=== PATIENT | female | born 1965 | race Caucasian/White ===

== ENCOUNTER 2022-06-24 21:08 | Emergency (ER) | payer OTHER, BC, SELFPAY ==
[2022-06-24 21:17] VITALS: BP 118/96; PULSE 78; RESP 18; TEMP 36.2; O2SAT 98; BMI 33.8
--- NOTE | 2022-06-24 21:55 | ED.GENADULT ---
HPI - General Adult General Time Seen by Provider: 21:50 Date Seen: 06/24/22 Chief complaint: Extremity Pain/Injury, Lower Stated complaint: LEFT KNEE INJURY - SEVERE Time Seen by Provider: 06/24/22 21:39 Source: patient and family Mode of arrival: ambulatory Limitations: no limitations History of Present Illness HPI narrative: 57-year-old female who comes in today with left knee pain or fall. Patient was finishing up with work prepped and fell landing predominantly on the left knee. Also scraped her hands. Denies head injury or head pain. Reports that prior to this she was feeling her usual state of health, no headache, nausea, vomiting, chest pain or palpitations. Says she did not pass out and clearly tripped. She has not taken anything for her pain. She also some pain in the back of the left calf. Related Data Home Medications Medication Instructions Recorded Confirmed duloxetine 60 mg capsule,delayed 120 mg PO DAILY 04/20/22 06/24/22 release gabapentin 600 mg tablet mg PO TID 04/20/22 04/20/22 hydroxyzine pamoate 25 mg capsule mg PO PRN 04/20/22 04/20/22 lamotrigine 100 mg tablet mg PO DAILY 04/20/22 04/20/22 metoprolol tartrate 25 mg tablet mg PO BID 04/20/22 04/20/22 ondansetron 8 mg disintegrating mg translingual PRN 04/20/22 04/20/22 tablet Previous Rx's Medication Instructions Recorded rizatriptan 10 mg tablet 10 mg PO .As Needed PRN migraine 04/20/22 headache #18 tabs Allergies Allergy/AdvReac Type Severity Reaction Status Date / Time lithium Allergy Severe drug Verified 06/24/22 21:22 induced immune thrombocytopenia olanzapine Allergy Severe drug Verified 06/24/22 21:22 induced immune thrombocytopenia phenobarbital Allergy Severe drug Verified 06/24/22 21:22 induced immune thrombocytopenia codeine Allergy Mild Rash Verified 06/24/22 21:22 Review of Systems Status of ROS: Reports: 10 or more systems reviewed and unremarkable except as noted in History and below [facility] Medical History (Updated 06/24/22 @ 23:22 by Enrique Garcia MD) Calculus of kidney (05/03/13) History of colonic polyps Infection due to severe acute respiratory syndrome coronavirus 2 (SARS-CoV-2) (10/2021) Surgical History (Updated 04/19/22 @ 18:55 by Ava Lofton) History of section (05/03/13) History of colonoscopy with polypectomy History of laparoscopic cholecystectomy History of spinal surgery (05/03/13) Family History (Updated 04/13/22 @ 15:27 by Faraz Kelly) Mother Breast cancer, Onset Age: 50 Father Stroke Coronary artery disease High blood pressure Other Hyperlipidemia Social History (Updated 04/13/22 @ 15:28 by Faraz Kelly) Narrative: consumes alcohol occasionally does not use illicit drugs smoker- 1 ppd for many years Smoking Status: Current every day smoker How often do you have a drink containing alcohol: 2-4 times a month AUDIT-C Alcohol total score: 2 Non-prescribed substance use: denies use Little interest or pleasure in doing things: not at all Feeling down, depressed, or hopeless: several days Exam Narrative: Exam Narrative: General: Well-developed and well-nourished, no acute distress Head: Atraumatic and normocephalic Eyes: Pupils are equal reactive, extraocular motions intact, conjunctiva clear ENT: External nose and ears are normal, posterior pharynx without erythema or exudate Neck: No midline cervical tenderness, full spontaneous range of motion the neck, trachea midline, no adenopathy Heart: Regular rate and rhythm no murmurs or thrills Lungs: Clear to auscultation bilaterally without wheezes or crackles Abdomen: Soft, nontender, nondistended with active bowel sounds Musculoskeletal: Swelling and tenderness of the left knee, no joint effusion. The patellar tendon is palpable along its course patient declines to straight leg raise due to pain but does fully straighten knee spontaneously and quadriceps mechanism appears to be intact. Calf and some popliteal tenderness with no swelling. Achilles tendon is intact with no tenderness at the distal insertion Neurologic: Awake, alert, and oriented x3, no gross focal neurologic deficits, cranial nerves intact as tested Psych: Mood and affect are appropriate Skin: No rashes Const: Vital Signs, click to edit/add: Vital Signs - 24 hr 06/24/22 21:17 Temperature 97.1 F L Pulse Rate [Left P ulse Oximeter] 78 Respiratory Rate 18 Blood Pressure [Ri ght Upper Arm] 118/96 H Pulse Oximetry 98 Oxygen Delivery Me thod Room Air Course Course Hospital Course: Patient seen and examined, prior records are reviewed. Patient presents after tripping and falling on her left knee. Tender and swollen over the patella, likely patellar fracture, contusion or bursitis also possible but less likely. No report of knee dislocation per the patient. She also has some tenderness in the calf but no swelling and the Achilles tendon act. X-rays of the knee are ordered. Reevaluation(s) Reevaluation #1: X-rays negative for acute fracture. Patient is little more swelling of the patellar tendon, quadriceps mechanism rechecked and intact. Stable for discharge with0 immobilizer crutches, weight-bearing as tolerated, follow-up with orthopedics. Time: 23:21 Vital Signs Vital signs: Initial Vital Signs Temperature 97.1 F L 06/24/22 21:17 Temperature Source Temporal Artery Scan 06/24/22 21:17 Pulse Rate 78 06/24/22 21:17 Respiratory Rate 18 06/24/22 21:17 Blood Pressure 118/96 H 06/24/22 21:17 Blood Pressure Mean 103 06/24/22 21:17 Blood Pressure Position Supine 06/24/22 21:17 Pulse Oximetry 98 06/24/22 21:17 Oxygen Delivery Method 06/24/22 21:17 Vital Signs Temperature 97.1 F L 06/24/22 21:17 Pulse Rate 78 06/24/22 21:17 Respiratory Rate 18 06/24/22 21:17 Blood Pressure 118/96 H 06/24/22 21:17 Pulse Oximetry 98 06/24/22 21:17 Oxygen Delivery Method 06/24/22 21:17 Temperature 97.1 F L 06/24/22 21:17 Pulse Rate 78 06/24/22 21:17 Respiratory Rate 18 06/24/22 21:17 Blood Pressure 118/96 H 06/24/22 21:17 Pulse Oximetry 98 06/24/22 21:17 Oxygen Delivery Method 06/24/22 21:17 Medical Decision Making Medical Records Medical records reviewed: Yes I reviewed the patient's medical records Lab Data Lab results reviewed: Yes I reviewed the patient's lab results Imaging Data XR left knee: Attestation: I have reviewed the pertinent imaging results. My impression: No acute fracture, no effusion Discharge Plan Discharge Clinical Impression: Strain of left calf muscle, Contusion of left knee, Bursitis, traumatic Patient Disposition: Home, Self-Care Condition: Stable Instructions: Contusion in Adults (ED), Knee Bursitis (ED) Additional Instructions: Tylenol and ibuprofen as needed for pain. Crutches and immobilizer for comfort. Follow-up with orthopedics Activity Level: Weight Bearing as Tolerated Prescriptions: No Action ondansetron 8 mg tablet,disintegrating translingual PRN duloxetine 60 mg capsule,delayed release(DR/EC) 120 mg PO DAILY lamotrigine 100 mg tablet PO DAILY metoprolol tartrate 25 mg tablet PO BID hydroxyzine pamoate 25 mg capsule PO PRN gabapentin 600 mg tablet PO TID rizatriptan 10 mg tablet 10 mg PO .As Needed PRN (Reason: migraine headache) Qty: 18 3RF Rx Instructions: TAKE ONE TAB AT ONSET OF HEADACHE, MAY REPEAT Q2H PRN, MAX 30 MG/24 HRS Follow Up/Referrals: Alexus Concepcion PA-C [Primary Care Provider] - Stand Alone Forms: Tempo [employer] Info Instructions
--- NOTE | 2022-06-24 21:59 | CRLHL7_ITS ---
For Patients: As a result of the Century Cures Act, medical imaging exams and procedure reports are released immediately into your electronic medical record. You may view this report before your referring provider. If you have questions, please contact your health care provider. Indication: Pain after fall Technique: Three views left knee Comparison: None Findings: Bones: Alignment is normal. No fractures or bone lesions. Joint spaces: Mild patellofemoral degenerative changes. Soft tissues: Unremarkable. No effusion. Impression: No acute abnormality. Dictated by Humaira Bishop MD @ 06/24/2022 11:11:48 PM (Electronically Signed)
[2022-06-24] MEDS: OxyCODONE/APAP 5-325 TABLET 1 TAB PO (22:00)
--- NOTE | 2022-06-24 23:16 | ED.NURSE ---
assisted pt to restroom via wheelchair.
== END 2022-06-24 23:59 | disposition home or self-care (01) ==
PROVIDERS: Emergency Provider Family Medicine; PCP Physician Assistant Medical
DX: S86.912A Strain of unspecified muscle(s) and tendon(s) at lower leg level, left leg, initial encounter (principal); S80.02XA Contusion of left knee, initial encounter; W01.0XXA Fall on same level from slipping, tripping and stumbling without subsequent striking against object, initial encounter
CPT/HCPCS: 73562; 99284; A9270

== ENCOUNTER 2022-07-26 14:25 | Outpatient (CLI) | payer OTHER, BC, SELFPAY ==
--- NOTE | 2022-07-26 14:30 | MR_ITS ---
[address] [address] Phone:?[phone] Fax:?[phone] Referring Physician Information: . SHELLY [id number] [facility] [address] Phone:?[phone] Fax:?[phone] Patient:Delmer Meza D.O.B:?1965 Sex:?Female Phone:?[phone] [facility] MRN:?[id number] Exam Date:?07/26/2022 ? EXAM: MRI of the LEFT KNEE, without contrast CLINICAL INFORMATION: Female, 57 years old, with left knee pain. INDICATION: Evaluate knee pain. PRIOR SURGERY: None reported. PLAIN FILMS: None available. COMPARISONS: No prior MRIs available. TECHNICAL INFORMATION: Using a 1.5T MR scanner and a localizing surface coil: sagittals: PD, PDFS coronals: PD, STIR axials: PD, T2FS SEDATION: None CONTRAST: None FINDINGS: Knee joint: Effusion: Trace-small left knee effusion. Popliteal cyst: Tiny, unruptured popliteal (Kearney's) cyst. Loose bodies: None. Subcutaneous and extra-articular soft tissues: Unremarkable. Ligaments: ACL: Intact ACL anteromedial and posterolateral bundles, without sprain or tear. PCL: Intact PCL, without acute or chronic injury. MCL: Mild thickening involving the proximal one third of the superficial MCL, without MCL tear (coronal PD series 10 image 17). LCL: Intact LCL, without injury. Posterolateral corner: No posterolateral corner soft tissue injury. Popliteus, biceps femoris, iliotibial band, popliteofibular ligament and lateral gastrocnemius are intact. Posteromedial corner: Mild semimembranosus tendinopathy, without tear. Pes anserine tendons and posterior oblique ligament are without injury, tendinopathy or bursitis. Extensor mechanism: Patellar tendon: Intact, without tendinopathy. Quadriceps tendon: Intact, without tendinopathy. Retinacula: Medial and lateral retinacula are intact. Fat pads: Mild-moderate edema is present within the superolateral Hoffa's fat pad (sagittal PDFS series 6 image 22). Medial compartment: Medial meniscus: Abnormal intrasubstance partial thickness tearing is present throughout the posterior meniscocapsular junction over a length of 2.4 cm (sagittal PDFS series 6 images 8-14). No articular surface or root tear. No extrusion or parameniscal cyst. Medial femoral condyle: No chondromalacia or osteochondral abnormality. Medial tibial plateau: No chondromalacia or osteochondral abnormality. Lateral compartment: Lateral meniscus: No articular surface, meniscosynovial junction or root tear. No displacement, extrusion or parameniscal cyst. Lateral femoral condyle: No chondromalacia or osteochondral abnormality. Lateral tibial plateau: No chondromalacia or osteochondral abnormality. Patellofemoral joint: Patella: Broad-based grade III chondromalacia of the medial facet and median ridge of the patella, with mild marginal osteophytosis and reactive osseous changes. Trochlea: Broad-based grade II/III chondromalacia of the medial facet and central sulcus of the trochlea, with mild marginal osteophytosis. Proximal tibiofibular joint: Unremarkable, without evidence of ligament sprain injury, joint effusion or adjacent marrow edema. Bones: No stress/occult fractures or other marrow edema/pathology. IMPRESSION: 1. Partial thickness posterior meniscocapsular junction tearing of the medial meniscus measuring 2.4 cm. 2. Mild-moderate osteoarthritis patellofemoral compartment. 3. Trace-small knee joint effusion with a tiny, unruptured popliteal (Kearney's) cyst. 4. Chronic sequela of a low-grade proximal MCL sprain, without tear. No ACL, PCL, or LCL sprain/tear. 5. Patellar tendon lateral femoral condyle friction syndrome. 6. No osteochondral abnormality of the medial or lateral compartment. 7. No lateral meniscal tear. BC Electronically signed on 07/27/2022 8:09:00 AM by Zev Aguirre M.D.
== END 2022-07-26 14:26 | disposition home or self-care (01) ==
LOC: MRI 14:26
PROVIDERS: PCP Physician Assistant Medical; Visit Provider Family Medicine
DX: M25.562 Pain in left knee (principal); S83.242A Other tear of medial meniscus, current injury, left knee, initial encounter; S83.412A Sprain of medial collateral ligament of left knee, initial encounter; M25.462 Effusion, left knee
CPT/HCPCS: 73721

== ENCOUNTER 2022-09-20 11:06 | Outpatient (CLI) | payer BC, SELFPAY ==
--- NOTE | 2022-09-20 11:30 | CRLHL7_ITS ---
For Patients: As a result of the 21st Century Cures Act, medical imaging exams and procedure reports are released immediately into your electronic medical record. You may view this report before your referring provider. If you have questions, please contact your health care provider. INDICATION: 57-year-old female. Nausea and vomiting. 70-pound weight loss over the last 11 months. TECHNIQUE: 1.1 mCi Tc labeled sulfur colloid mixed in with a pre-determined solid meal and 4 ounces of juice. Imaging performed up to four hours. FINDINGS: No scintigraphic evidence for delayed gastric emptying. 0 minutes 100 percent of activity remains. 60 minutes 82 percent of activity remains. 90 minutes 54.5 percent of activity remains. 120 minutes 35.6 percent of activity remains. 240 minutes 1.1 percent of activity remains. IMPRESSION: No scintigraphic evidence for delayed gastric emptying. Dictated by Rudolph Nicole MD @ 09/20/2022 5:49:46 PM (Electronically Signed)
== END 2022-09-20 11:07 | disposition home or self-care (01) ==
LOC: NM 11:07
PROVIDERS: PCP Family Medicine
DX: R11.2 Nausea with vomiting, unspecified (principal); R63.4 Abnormal weight loss
CPT/HCPCS: 78264; A9541

== ENCOUNTER 2023-01-27 14:34 | Outpatient (CLI) | payer BC, OTHER, SELFPAY ==
--- NOTE | 2023-01-27 15:00 | CRLHL7_ITS ---
For Patients: As a result of the Century Cures Act, medical imaging exams and procedure reports are released immediately into your electronic medical record. You may view this report before your referring provider. If you have questions, please contact your health care provider. BILATERAL SCREENING MAMMOGRAM WITH COMPUTER-AIDED DETECTION AND TOMOSYNTHESIS TECHNIQUE: CC and MLO views were obtained. These mammographic images have been obtained using full-field digital technique. These mammographic images were interpreted with the benefit of computer-aided detection. Breast Tomosynthesis was used in this interpretation. COMPARISON FILM: 05/10/13, 05/22/13 (right) FINDINGS: There are scattered areas of fibroglandular density IMPRESSION: There is no radiographic evidence for malignancy. ASSESSMENT: BI-RADS Category 2: Benign RECOMMENDATION: Routine screening mammogram in 1 year. A lay language report of this examination will be provided to the patient. Flako Barlow M.D. Diagnostic Radiologist [email or web address] Transcribed: 2:29 p.mNav portillo/Dictated by: Flako Barlow MD @ 01/30/2023 1:19:00 PM (Electronically Signed)
== END 2023-01-27 14:35 | disposition home or self-care (01) ==
LOC: MAMMO 14:35
PROVIDERS: PCP Family Medicine; Visit Provider Family Medicine
DX: Z12.31 Encounter for screening mammogram for malignant neoplasm of breast (principal)
CPT/HCPCS: 77063; 77067

== ENCOUNTER 2023-02-07 07:30 | Outpatient (RCR) | payer OTHER, BC, SELFPAY ==
--- NOTE | 2022-07-05 18:21 | PT.OPE ---
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 went to ED, screamed for 45 min, . did xray they said needed help up from ground then went on 1 leg to the car, drove you saw MD last Mon and go back again on , she recommended ortho and MRI that have to be approved went down on L knee and onto side L leg on bottom couldnt move it. - sharp pain in popliteal fossa then gets swollen and have to sit after an hour whole leg feels numb and tingly. - pain wakes me up 3-4x/ night - RX gave me oxy I havent used them, taking 800 mg ibp every 6 hours, using ice then switched to heat, top of L foot hurts when on MTP sharp pain top of foot. have to wear birkenstocks, got knee brace - now both hips and back hurt also - HTN on meds, depression controlled, anxiety, lost 62# since covid, - ecchymosis on R ulna and patella and post knee. Pain Comments sitting - 5/10 pain in knee across patella & popliteal fossa worst 8/10 with bumping it or on feet x 1 hour - hips 3-4/10 - LB 3/10 - forearm no pain now. 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 lacks hip ext/knee ext (3 fingers above plinth to popliteal fossa) in supine Strength MMT ankle 4/5 quad can hold against gravity x 10 sec SLR in sitting no lag hip flex seated 4/5 B w pain on L post thigh unable to effectively quantify hip abd/add strength due to knee tenderness. Swelling 39.0 cm infrapatella 44.0 sprapatella mid pzjnihl95.0cm 40 cm calf at 12 cm distal 57.0 cm 12 cm proximal to patella fluid noted prepatella region, area size of golf ball in popliteal fossa visible from side Palpation severe tenderness did not tolerate light touch over anterior patella or peripatella region. mod tenderness to mod touch lateral and posterior knee, significant concern expressed by patient about touching area due to pain and anticipated pain. Did not tolerate strength testing in quad or HS due to sensitivity. Balance & Gait wide swing with full knee ext, WB on R primarily, antalgia, no gait aid this date (is using single crutch at home but did not bring with). Noted to be able to amb with modified range knee flex/ ext after cueing. Sit/ stand uses R LE only w UE assist from surface with twist to right. balance on R good, L not fully assessed due to patient response. Posture standing WB on R LE with L LE stuck out to side in brace, knee ext. able to WB on L and amb Other/Pertinent Objective + ballotable patella, + fluid sweep peripatella. unable to fully assess varus/valgus, meniscus, ACL/PCL due to significant guarding and anticipatory pain responses by patient. Is wearing compression brace with closed patella region and metal stays on side. Assessment Assessment/Impression Pt arrived 30 min late for appt and is work comp so eval only today. She is referred to rehab services s/p fall on 06/24/22 in garage at work (at detention for 4 patients with TBI) when she missed a step and fell to L, believes she struck her L knee and onto her L side, as well as R ulna. She states she screamed and screamed for 45 min. Did not wish ambulance to come as was worried it would upset her residents, so staff at the detention called her who came to get her and drove her to ED where she had xray. She followed up with her primary last Fri who recommended orthopedics referral, PT and MRI - waiting on work comp approval for those. Reports pain as noted above - primarily L knee, B hips and LB and into top of L foot. Unable to fully assess due to extreme tenderness and anticipatory guarding through L LE. Gait is modified, did instruct in better use of single crutch on contralateral side as well as how to adjust appropriately for her height (she does not have it with her today). She states knee feels 'floppy' when she does not have brace on but it has not given out. She is able to perform quad set and hold in LAQ extension x 10 sec without lag, but unable to fully assess ligamentous stability or potential meniscal involvement due to pain and guarding. Past treatment includes: prescription of oxy (has taken a few), 800 mg ibp every 6 hours, used ice and heat, purchased her own brace, amb with crutches intermittently, and elevation. Pain is waking her several times/night and impedes all activities that involve LE including gait, lift/carry, all job tasks and mobility endeavors. Patient is appropriate for skilled physical therapy for instruction in body mechanics, gait, there ex for strength, gait and balance, manual therapy for edema and pain management and mobility, self care/home mangagement, and modalities prn for pain. She also c/o pain in neck since fall stating she feels this may be related to fall. We do not currently have WC claim # patient is working on getting that to us. Primary Functional Limitations sit/ stand, walking, standing, sleeping, bed mobility Plan of Care Rehabilitation Potential Good Physical Therapy Goals 1) Pt demo I with home program for self management, ROM and strengthening ex. 2) Pt demo gait with appropriate weight bearing and LE chain mechanics without gait aid and without evident antalgia for return to work and community ambulation 3) Pt demo ability to safely perform all aspects of job including lifting, carrying, standing, walking squatting etc without pain > 2/10 during and after activity. 4) Pt demo ROM 0-120 for return to sit/ stand, in/out car, stairs etc with pain <2/ 10 5) Pt demo abiltiy to amb 500- 1000' feet for return to community amb Coordination/Communication With Referral Source Treatment Plan/Direct Interventions Electrical Stimulation,Gait Training,Ice/Cold/ Vasopneumatic,Iontophoresis, Manual Therapy,Neuromuscular Re-ed,Self-Care/Home Management,Therapeutic Activities,Therapeutic Exercises Frequency/Duration 1-2x/ week x 8 weeks Patient Will Be Discharged From Therapy Completion of LTG(s),Skills Plateau,Independent w/HEP, Independently Progressing Evaluation Billing Untimed Code Treatment Minutes 30 Complexity Moderate Certification Information Physician Comment/Change Comment or Changes Physician NPI Number #
== END 2023-02-08 13:13 | disposition home or self-care (01) ==
PROVIDERS: PCP Physician Assistant Medical; Visit Provider Family Medicine
DX: M71.50 Other bursitis, not elsewhere classified, unspecified site (principal); M25.562 Pain in left knee; M25.552 Pain in left hip; M25.551 Pain in right hip; M54.50 Low back pain, unspecified; R26.89 Other abnormalities of gait and mobility; Z51.89 Encounter for other specified aftercare
CPT/HCPCS: 80053; 80061; 83735; 84100; 84443; 86803; 97032; 97035; 97110; 97112; 97140; 97162; 97164; 97535

== ENCOUNTER 2023-08-24 04:04 | Emergency (ER) | payer BC, SELFPAY ==
[2023-08-24 04:15] VITALS: BP 162/104; PULSE 87; RESP 18; TEMP 36.8; O2SAT 99; BMI 31.3
--- NOTE | 2023-08-24 04:43 | ED_ITS ---
HPI - General Adult General Chief complaint: Nausea/Vomiting Stated complaint: nauseated, vomitting Time Seen by Provider: 08/24/23 04:19 Source: patient Mode of arrival: ambulatory History of Present Illness HPI narrative: 58-year-old female that reports comorbid mental health issues but also 18 months of bothersome symptoms since having COVID presents with pattern of cyclic vomiting. Patient reports the for the last 11 months, she has had episodes of severe nausea and vomiting that last for days on end. She has not found any specific alleviating factors. Has not necessarily noticed any association with hot showers. Has had thorough workup with through Gastroenterology including EGD, testing for H pylori, even a prophylactic antibiotic combo for H pylori none of which have been helpful nor revealing. She does not use NSAIDs. No fever, no injury or trauma. Reports decreased urination the last couple of days and feeling weaker from the vomiting. No bloody stools. Denies alcohol use. Reports that she has lost 90 lb in the last year and a half from these episodes of nausea and vomiting. On specific questioning, she reports use of marijuana for about the past year. Her doctor recommended that she try this to help with appetite stimulation. She is uncertain if there could be a connection with the marijuana but reports that she has not smoked in the last 5 days. Has a prescription for home Zofran that she is using 4 times daily which helps minimally with the nausea. I review her allergy list and notice an allergy to olanzapine. She specifically tells me that this was documented when she went into rehab. She was placed on several drugs including phenobarbital and clozapine. She was also on lithium and the olanzapine as documented. She had an episode of what sounds consistent with either TTP or ITP. She was told it could be anyone of those drugs and therefore discontinued all of them and they have remained on her allergy list since. She has had no further episodes of TTP since her original recovery. She denies long-term platelet issues. She and I discussed that the anticonvulsants especially phenobarbital or much more likely to cause this reaction than the olanzapine. When I let her know that I do since that her episodes could potentially be related to her marijuana use and cyclic vomiting syndrome and we discussed this pathology. I tell her that olanzapine can be a wonderful tool for some people with this condition. I cannot be sure that olanzapine was not the drug but caused her TTP but it is far less likely than the others and may be worth trying. We do discuss the risks and benefits of this and she is okay with proceeding with a trial of olanzapine today. Past medical history is fairly extensive. Sounds like she is also dealing with some cervical radiculopathy in the left arm and is in physical therapy for this. She is on multiple antidepressants. She also has a history of hypertension. Does have regular primary care visits. ROS is notable for the GI symptoms as above also endorsing some cervical radiculopathy, chronic fatigue and multiple other stable organ system complaints times 12 systems. Related Data Previous Rx's Medication Instructions Recorded ondansetron 8 mg disintegrating 8 mg .Route Q6H PRN nausea and 11/03/22 tablet vomiting #30 tabs nicotine 10 mg inhalation 1 inh inhalation 4-6XD PRN 02/09/23 cartridge (Nicotrol) nicotine cravings #168 ea bupropion HCl 150 mg 24 hr tablet, 150 mg PO QAM #90 tabs 05/15/23 extended release (Wellbutrin XL) gabapentin 300 mg capsule 600 mg (2 x 300 mg) PO TID 1 month 05/15/23 #180 caps desvenlafaxine succinate 25 mg 50 mg (2 x 25 mg) PO QDAY #60 tabs 06/05/23 tablet,extended release 24 hr lamotrigine 100 mg tablet 100 mg PO QDAY #90 tabs 06/15/23 (Lamictal) metoprolol tartrate 25 mg tablet 25 mg PO BID #180 tabs 06/15/23 rizatriptan 10 mg tablet 10 mg PO ONCE #18 tabs 07/06/23 desvenlafaxine succinate 50 mg 50 mg PO QDAY #90 tabs 07/27/23 tablet,extended release 24 hr dextroamphetamine-amphetamine 30 30 mg PO BID #60 tabs 07/27/23 mg tablet metformin 500 mg tablet 500 mg PO BID #60 tabs 08/03/23 olanzapine 5 mg tablet 5 - 10 mg (1 - 2 x 5 mg) PO QHS 08/24/23 PRN #20 tabs Allergies Allergy/AdvReac Type Severity Reaction Status Date / Time lithium Allergy Severe drug Verified 06/15/23 08:51 induced immune thrombocytopenia olanzapine Allergy Severe drug Verified 06/15/23 08:51 induced immune thrombocytopenia phenobarbital Allergy Severe drug Verified 06/15/23 08:51 induced immune thrombocytopenia codeine Allergy Mild Rash Verified 06/15/23 08:51 PFSH [facility] Medical History Eating disorder (05/03/13) ?F50.9 - Eating disorder, unspecified (ICD-10) Prepatellar bursitis of left knee ?M70.42 - Prepatellar bursitis, left knee (ICD-10) Calculus of kidney (05/03/13) ?N20.0 - Calculus of kidney (ICD-10) Plantar fasciitis, bilateral ?M72.2 - Plantar fascial fibromatosis (ICD-10) Achilles tendinitis ?M76.60 - Achilles tendinitis, unspecified leg (ICD-10) Surgical History History of spinal surgery (05/03/13) ?Z98.890 - Other specified postprocedural states (ICD-10) History of laparoscopic cholecystectomy ?Z90.49 - Acquired absence of other specified parts of digestive tract (ICD- 10) History of section (05/03/13) ?Z98.891 - History of uterine scar from previous surgery (ICD-10) History of colonoscopy with polypectomy ?Z98.890 - Other specified postprocedural states (ICD-10) ?Z86.010 - Personal history of colonic polyps (ICD-10) Family History Mother Breast cancer, Onset Age: 50 Father Stroke Coronary artery disease High blood pressure Sister Crohn disease Xiong syndrome Other Hyperlipidemia Social History Narrative: consumes alcohol occasionally does not use illicit drugs smoker- 1 ppd for many years Smoking Status: Current every day smoker Second hand tobacco smoke exposure: No How often do you have a drink containing alcohol: 2-4 times a month AUDIT-C Alcohol total score: 2 Non-prescribed substance use: denies use Little interest or pleasure in doing things: several days Feeling down, depressed, or hopeless: several days Exam Const: Vital Signs, click to edit/add: Vital Signs - 24 hr 08/24/23 04:15 08/24/23 04:50 Temperature 98.2 F Pulse Rate [Pulse Oximeter] 87 Respiratory Rate 18 Blood Pressure [Ri ght Upper Arm] 162/104 H Pulse Oximetry 99 99 Oxygen Delivery Me thod Room Air Documenting provider has reviewed patient's vital signs: yes Common normals: no apparent distress and alert Other: Appears well nourished and well hydrated, nontoxic. Reasonable and discusses the potential for cyclic vomiting syndrome with fairly easy acceptance. HENMT: Common normals: normocephalic and head/scalp atraumatic Head and scalp: normocephalic and atraumatic Face and sinus: normal facial exam Mouth: oral and palatal mucosa normal Throat: posterior oropharynx normal Eye: Common normals: conjunctivae normal General eye: normal appearance of both eyes Conjunctiva: conjunctiva(e) normal Neck & C-Spine: Common normals: no lymphadenopathy General: normal visual inspection Resp: Common normals: normal respiratory effort, no use of accessory muscles and clear to auscultation bilaterally Effort & inspection: able to speak in complete sentences Auscultation: clear to auscultation bilaterally Cardio: Common normals: regular rate, regular rhythm, S1 normal heart sound, S2 normal heart sound and no murmurs Rate: regular rate Rhythm: regular rhythm Heart sounds: S1 normal and S2 normal GI: Common normals: Normal to inspection, nondistended, normoactive bowel sounds present, soft to palpation, non-tender, no hepatosplenomegaly and no masses Palpation: soft and no hepatosplenomegaly Extremity: Common normals: normal capillary refill and no pedal edema Neuro: Sensorium/orientation: alert Speech: speech normal Gait (neuro): normal gait Motor exam: strength 5/5 throughout, no tremor noted and no movement abnormalities noted Psych: Attitude: engaged Activity/motor behavior: appropriate eye contact Insight: insight good Judgement: judgment good Skin: Common normals: no rashes or lesions noted General skin exam: no rashes or lesions noted Course Course ED Course: Benign exam with recurrent episodes of nausea and vomiting in the setting of regular marijuana use. Could possibly be cyclic vomiting syndrome. History of TTP but far less likely related to a lands of pain than the other drugs she is confident that were given to her at that time as well. We discussed risks and benefits and she is willing to do a trial of olanzapine today. Will give 5 mg IV x1, 2 L of LR and perform some basic labs to ensure that there is no major electrolyte abnormality. I have talked to her about discontinuing marijuana for 6 weeks she is willing to try this. I let her know that potentially different appetite stimulant like mirtazapine may be a better choice for her. This would have to be done carefully in the setting of her other mental health medications. There is no test for cyclic vomiting syndrome, only a trial of being completely THC free. I am mostly reassured by the fact that she has had appropriate GI testing and workup already. Await lab findings but anticipate discharge home for continued outpatient workup of ongoing issues. Reevaluation(s) Time of Reevaluation #1: 05:45 Reevaluation #1: Discussed benign labs with patient. Liver functions are stable. She is feeling better after the olanzapine and fluids which is reassuring. Counseled again on risks and benefits of olanzapine. She is willing to do a trial of this at home. I do feel safe recommending this. Patient will push fluids, abstain from marijuana, make a follow-up appointment with her primary care doc in about a month to update on progress. Continue the remainder of her medications as prescribed. Reviewed alarm symptoms that would warrant ED presentation. She verbalizes understanding and agreement. Vital Signs Vital signs: Initial Vital Signs Temperature 98.2 F 08/24/23 04:15 Temperature Source Temporal Artery Scan 08/24/23 04:15 Pulse Rate 87 08/24/23 04:15 Respiratory Rate 18 08/24/23 04:15 Blood Pressure 162/104 H 08/24/23 04:15 Blood Pressure Mean 123 H 08/24/23 04:15 Blood Pressure Position Sitting 08/24/23 04:15 Pulse Oximetry 99 08/24/23 04:15 Oxygen Delivery Method Room Air 08/24/23 04:15 Vital Signs Temperature 98.2 F 08/24/23 04:15 Pulse Rate 87 08/24/23 04:15 Respiratory Rate 18 08/24/23 04:15 Blood Pressure 162/104 H 08/24/23 04:15 Pulse Oximetry 99 08/24/23 04:15 Oxygen Delivery Method Room Air 08/24/23 04:15 Temperature 98.2 F 08/24/23 04:15 Pulse Rate 87 08/24/23 04:15 Respiratory Rate 18 08/24/23 04:15 Blood Pressure 162/104 H 08/24/23 04:15 Pulse Oximetry 99 08/24/23 04:50 Oxygen Delivery Method Room Air 08/24/23 04:15 Medical Decision Making Lab Data Lab results reviewed: Yes I reviewed the patient's lab results Lab results narrative: Mildly elevated liver enzymes which are stable for patient. Labs otherwise benign. No signs of malnutrition either based on protein levels. Labs: Lab Results 08/24/23 Range/Units 04:35 WBC 6.69 (4.50-11.00) K/uL RBC 5.06 (4.00-5.20) m/uL Hgb 15.1 (12.0-16.0) gm/dL Hct 46.0 (33.0-51.0) % MCV 91 (80-100) fL MCH 30 (26-34) pg MCHC 33 (32-36) gm/dL RDW Coeff of [place] 12.1 (11.5-15.5) % Plt Count 317 (140-440) K/uL Neut % (Auto) 64.8 (42.0-72.0) % Lymph % (Auto) 24.4 (20-44) % [place] % (Auto) 8.7 (0.0-11.0) % Eos % (Auto) 1.6 (0.0-7.0) % Baso % (Auto) 0.4 (0.0-3.0) % Neut # (Auto) 4.33 (1.7-7.0) K/uL Lymph # (Auto) 1.63 (0.90-2.90) K/uL [place] # (Auto) 0.60 (0.00-0.90) K/UL Eos # (Auto) 0.11 (0.00-0.50) K/uL Baso # (Auto) 0.03 (0.00-0.30) K/uL Abs Immat Gran (auto) 0.01 (0.00-0.30) K/uL Imm/Tot Granulo (auto) 0.1 % Sodium 140 (135-149) mmol/L Potassium 4.4 (3.6-5.1) mmol/L Chloride 97 (96-114) mmol/L Carbon Dioxide 26 (20-32) mmol/L Anion Gap 17 H (7-15) mEq/L BUN 16 (7-30) mg/dL Creatinine 1.1 (0.5-1.5) mg/dL Estimated Creat Clear 54.87 Estimated GFR 59 ml/min Glucose 108 (60-115) mg/dL Calcium 9.8 (8.4-10.6) mg/dL Total Bilirubin 1.4 (0.1-1.5) mg/dL AST 68 H (12-35) U/L ALT 60 H (4-35) U/L Alkaline Phosphatase 96 (40-150) U/L C-Reactive Protein < 0.5 L (0.5-1.0) mg/dL Total Protein 8.6 H (6.0-8.3) g/dL Albumin 5.0 (3.3-5.0) g/dL Lipase 90 (23-300) U/L Discharge Plan Discharge Clinical Impression: Cyclic vomiting syndrome Patient Disposition: Home w/ Parent or Adult Condition: Improved Instructions: Cyclic Vomiting Syndrome (ED) Additional Instructions: As we discussed, I think the your symptoms might be caused by cyclic vomiting syndrome. Sometimes, this is related to marijuana use. I think that years could be connected but would not know unless you are completely free of all THC containing compounds for at least 4, preferably 6 weeks. If the episodes disappear, your likely sensitive to the marijuana. Unfortunately, restarting the marijuana often does bring your symptoms back within a week or 2. There are other medications that can be used to help stimulate appetite like Remeron. I would like for you to be off of the marijuana as discussed, make a follow-up with her primary care doctor in about a month to discuss. Let her know the outcomes of the experiment and also decide if you need to be on a different medication to help stimulate appetite. Would also like for you to do a trial in the next few days of hot showers to see if these do help alleviate the nausea and vomiting temporarily. Often, this is helpful as well. Continue to push fluids, you may use her Zofran during the day if needed. I have given you a prescription for olanzapine to use at bedtime. As we discussed, this was wildly unlikely to be the drug that caused your TTP and it is much more likely to have been 1 or 2 of the other drugs you were given at the same time. I am confident enough that I do think that the benefit of trying this medication outweighs the risk. I do not recommend that we go back to the other medications that more likely caused the condition. Come back to the emergency department if your completely unable to hold down any liquids for over 24 hours, have significantly bloody vomit or are so weak you cannot get from your bed to the bathroom. Activity Level: Activity as Tolerated Discharge Diet: Regular Prescriptions: New olanzapine 5 mg tablet 5 - 10 mg PO QHS PRNQty: 20 0RF No Action ondansetron 8 mg tablet,disintegrating 8 mg .ROUTE Q6H PRN (Reason: nausea and vomiting) Qty: 30 3RF Rx Instructions: 8 mg every 6 hours PRN; Nicotrol 10 mg cartridge 1 inh inhalation 4-6XD PRN (Reason: nicotine cravings) Qty: 168 1RF lamotrigine [Lamictal] 100 mg tablet 100 mg PO QDAY Qty: 90 3RF metoprolol tartrate 25 mg tablet 25 mg PO BID Qty: 180 3RF metformin 500 mg tablet 500 mg PO BID Qty: 60 9RF bupropion HCl [Wellbutrin XL] 150 mg tablet extended release 24 hr 150 mg PO QAM Qty: 90 3RF gabapentin 300 mg capsule 600 mg PO TID 30 Days Qty: 180 3RF desvenlafaxine succinate 25 mg tablet extended release 24 hr 50 mg PO QDAY Qty: 60 1RF rizatriptan 10 mg tablet 10 mg PO ONCE Qty: 18 11RF Rx Instructions: Take 1 tab at onset of headache, may repeat every 2hrs as needed. MAX 30MG/24HRS desvenlafaxine succinate 50 mg tablet extended release 24 hr 50 mg PO QDAY Qty: 90 3RF dextroamphetamine-amphetamine 30 mg tablet 30 mg PO BID Qty: 60 0RF Follow Up/Referrals: Vanessa Barbour MD [Primary Care Provider] - Stand Alone Forms: [employer] Info Instructions
[2023-08-24 04:49] LABS: Basophils Absolute Auto 0.03 K/uL (0.00-0.30); Basophils Percent Auto 0.4 % (0.0-3.0); Eosinophils Absolute Auto 0.11 K/uL (0.00-0.50); Eosinophils Percent Auto 1.6 % (0.0-7.0); Hemoglobin* 15.1 gm/dL (12.0-16.0); Immature Granulocytes Abs Auto 0.01 K/uL (0.00-0.30); Immature Granulocytes Pct Auto 0.1 %; Lymphocytes Absolute Auto 1.63 K/uL (0.90-2.90); Lymphocytes Percent Auto 24.4 % (20-44); Mean Corpuscular HGB Conc 33 gm/dL (32-36); Mean Corpuscular Hemoglobin 30 pg (26-34); Mean Corpuscular Volume 91 fL (80-100); Monocytes Percent Auto 8.7 % (0.0-11.0); Neutrophils Absolute Auto 4.33 K/uL (1.7-7.0); Neutrophils Percent Auto 64.8 % (42.0-72.0); Platelet Count* 317 K/uL (140-440); RDW Coefficient of Variation % 12.1 % (11.5-15.5); Red Blood Count 5.06 m/uL (4.00-5.20); White Blood Count* 6.69 K/uL (4.50-11.00)
[2023-08-24] MEDS: LACTATED RINGERS 1000 ML 1,000 ML IV (04:49)
[2023-08-24] MEDS: OLANZapine 5 MG/ML inj IVP (04:49)
[2023-08-24 04:50] VITALS: O2SAT 99
[2023-08-24 05:28] LABS: Chloride* 97 mmol/L (96-114); Slide Review Reflex No; Sodium* 140 mmol/L (135-149)
[2023-08-24 05:29] LABS: Potassium* 4.4 mmol/L (3.6-5.1)
[2023-08-24 05:31] LABS: Anion Gap 17 mEq/L (7-15); Bilirubin Total* 1.4 mg/dL (0.1-1.5); Carbon Dioxide* 26 mmol/L (20-32); Creatinine* 1.1 mg/dL (0.5-1.5); Est. Creatinine Clearance* 54.87; Estimated Glomerular Filt Rate 59 ml/min
[2023-08-24 05:32] LABS: Alanine Aminotransferase* 60 U/L (4-35); Alkaline Phosphatase* 96 U/L (40-150); Aspartate Amino Transferase* 68 U/L (12-35); Blood Urea Nitrogen* 16 mg/dL (7-30); Calcium* 9.8 mg/dL (8.4-10.6); Glucose* 108 mg/dL (60-115); Lipase* 90 U/L (23-300); Total Protein* 8.6 g/dL (6.0-8.3)
[2023-08-24 05:35] LABS: C Reactive Protein* < 0.5 mg/dL (0.5-1.0)
[2023-08-24 06:00] VITALS: BP 131/69; PULSE 71; RESP 18; TEMP 36.8
== END 2023-08-24 06:00 | disposition home or self-care (01) ==
PROVIDERS: Emergency Provider Family Medicine; PCP Family Medicine
DX: R11.15 Cyclical vomiting syndrome unrelated to migraine (principal)
CPT/HCPCS: 36415; 80053; 80306; 81003; 83690; 85025; 86140; 94761; 96361; 96374; 99284; J7120; S0166

== ENCOUNTER 2023-09-19 11:04 | Outpatient (CLI) | payer BC, SELFPAY | END 2023-09-19 11:05 | disposition home or self-care (01) | PROVIDERS: PCP Family Medicine; Visit Provider Family Medicine | DX: Z01.818 Encounter for other preprocedural examination (principal) | CPT/HCPCS: 80053 ==

== ENCOUNTER 2023-10-06 10:45 | Outpatient (RCR) | payer BC, SELFPAY ==
--- NOTE | 2023-08-24 18:39 | PT.OPE ---
[facility] Eval Start: 08/23/23 09:11 Freq: Status: Active Protocol: Document 08/23/23 15:08 BMS (Rec: 08/23/23 15:19 BMS [id number]) E-signed By Omayra Bella PT Physical Therapy Outpatient Evaluation Insurance Information Recert Due Date 11/20/23 Insurance Name [employer] Provider Fax Number internal Medical Diagnosis L shoulder pain M25.512 pain in L shoulder Treating Diagnosis L shoulder pain M25.512 cervical radiculopathy M54.12 nerve impingement Referring MD Myah Barbour MD Subjective Subjective left shoulder and arm issues 3 months, depression, HTN, anxiety, fibromyalgia long Covid - nausea, emesis, fatigue hx surgery for kidney stones, left orbital blow out fx, knee inj/tightness s/p fall at [facility] Pain Comments 2-06/01, shoulder down arm dimas at supinator and pins/needles, weakness Current Work Status Job Status Change Occupation no longer working at [employer], looking for new job. Precautions Treatment Precautions/Contraindications smoker trying to quit, hx of long Covid, high stress, mental health Therapy Limitations/Systems Review Other Medical Problem Objective Range of Motion cervical flex and ext WNL rotation R = 65, L=45 with pain SB R=40, L=10 shoulders, elbows, wrists WNL (hands paresthesias - pins/ needles and numb with overhead ) Strength MMT seated cervical flex, ext, B SB and B rotation in neutral 5/5 R shoulder, elbow, wrist groups 5/5. L flex, abduct 3-/5. tricep 3/ 5 bicep and ER and IR 5/5 abductor digiti minimii 4-/5. abductor and extensor pollicis 3/5 Palpation mod+tender over RC, pec, UT, levator. Balance & Gait not assessed Posture head forward, shoulders protracted. braced UE on chair and plinth, L UE held close to body. Sensation/Reflexes decreased pinprick sensation radial distribution, C5 mild loss, C7 mild loss compared to CL Reflexes diminished tricep Other/Pertinent Objective atrophy of L UE noted in wrist extensors, tricep Functional Test Performed & Score QuickDASH -patient forgot to leave completed form after session Assessment Assessment/Impression Patient is 58 yo female referred to rehab services for LEFT shoulder pain of 3+ months duration. She is known to this therapist for prior episode of care for unrelated condition. She presents today with pain 2-8/10 in L shoulder , scapular area, into neck and down arm with concurrent weakness, paresthesias of pins and needles with positions and activities. She did notice symptoms while on trip to [place] several days after having a massage. No traumatic injury is noted at the time. Able to reproduce symptoms with UE overhead, noted MMT 3/5 for L shoulder flex and weakness of thumb and abductor digiti minimi, decreased sensation, and decreased mm mass in L UE poss from disuse vs neural impingement. She is limited with grooming, dressing, overhead reaching, carrying, is dropping things she wouldnt normally (such as a alcala the other day while cooking), pain is affecting sleeping, has been unable to bike for fitness, all reaching and fine manipulation. She has tried TENS unit, OTC meds, that did not help noticeably. Has not had imaging beyond xray at this time, states some temporary relief from heat/ice . Has not tried acupuncture, prendisone, chiropractic or other interventions. Patient did not respond favorably to trial of pneumatic traction this date but may try again - chose pneumatic over mechanical in hopes she would be able to relax cervical mm better if in control but instead felt increased pain and symptoms. Unfortunately patient also is dealing with chronic off balance, dizziness , nause, vomiting and has been told she has long Covid as well as fibromyalgia, anxiety and depression, recently ended a job and is looking for another, is working toward smoking cessation and has high stress at home with spouse having vascular surgery and who has hx of cardiac arrest in past year. She is appropriate for skilled physical therapy and will benefit from recommended interventions to be modified per tolerance and response. may consider MRI of neck, poss trial of cortisone to reduce inflammation? poss referral to med specialist pending results of MRI Primary Functional Limitations any use of L arm, sleeping, carrying, dressing, grooming, quality of life, dropping things, weakness of arm, fatigue from constant pain Plan of Care Rehabilitation Potential Good Rehabilitation Potential Comments patient has several chronic conditions (fibromyalgia, depression, anxiety, long Covid, nausea/emesis, poss vestibular contributions) that may impact recovery, as well as being smoker trying to quit . she has been very compliant with home programs in past Physical Therapy Goals STG meet 2-3 weeks 1) Pt demo independence with HEP and self care/home management techniques for shoulder/elbow pain, increased ROM and strength for return to previous level of function. 2) Pt report pain <= 2/10 with reaching into cupboard without substitution. LTG 1)Pt demo ability to don/doff clothes including shirts and coats without increased pain. 2) Pt demonstrate ability to lift 10# without contortion or substitution patterns of UE or trunk for carrying gallon of milk etc. 3) Pt demo ROM WNL combined flex, abduct and ER to perform grooming and hair brushing. 4) Pt report ability to sleep without waking from pain >2 nights per week in preferred position using appropriate positioning. 5) Pt demo strength shoulder flex adn abduct , thumb abduct and ext 4/5 for improved function and reduced incidence of paresthesias and weakness affecting function. Coordination/Communication With Referral Source Treatment Plan/Direct Interventions Electrical Stimulation,Ice/ Cold/Vasopneumatic,Manual Therapy,Neuromuscular Re-ed, Self-Care/Home Management, Therapeutic Activities, Therapeutic Exercises,Traction (Mechanical),Ultrasound Frequency/Duration 1-2x/ week up to 12 weekis Patient Will Be Discharged From Therapy Completion of LTG(s),Skills Plateau,Independent w/HEP, Independently Progressing Evaluation Billing Untimed Code Treatment Minutes 30 Complexity Moderate Certification Information Physician Comment/Change : Physician NPI Number #
== END 2024-01-18 13:40 | disposition home or self-care (01) ==
PROVIDERS: PCP Family Medicine; Visit Provider Family Medicine
DX: M25.512 Pain in left shoulder (principal); M54.12 Radiculopathy, cervical region; M75.40 Impingement syndrome of unspecified shoulder; Z51.89 Encounter for other specified aftercare
CPT/HCPCS: 97110; 97140; 97162; 97535

== ENCOUNTER 2024-10-16 14:38 | Emergency (ER) | payer BC, SELFPAY ==
--- OUTSIDE RECORDS SUMMARY | 2024-10-16 14:40 | XMS_ITS | Data Portability ---
Author Organization [facility] [employer], [id number] Address [address] [place] [address] Care Team Providers Care Superintendent General Name Role Phone VANESSA ELIAS Primary Care Provider Assessment Encounter Date Assessment Date Assessment LastModified by Organization Details LastModified Time 03/08/2023 03/08/2023 I spent a total of 15 minutes providing care for this patient including: preparing to see the patient, obtaining a medical history, completing a medically appropriate physical exam, completing documentation of visit information and plans in the EMR, counseling the patient and/or caregiver regarding her diagnosis, treatment options and follow up plans, as well as any necessary communication of subsequent test results to the patient, reviewing medical records, counseling the patient and/or caregiver regarding health maintenance recommendations [email or web address] Not available 03/08/2023 11:15:51 Plan of Treatment Reminders Order Date Submit Date Provider Last Modified By Organization Details Last Modified Time Details Appointments None recorded. Lab None recorded. Referral None recorded. Procedures None recorded. Surgeries tension-f ree vaginal tape (SURG) [phone] [facility], [address] [place], [address], 3 09:31:10 Imaging None recorded. Medication Orders None recorded. Patient TargetsNo targets recorded. Patient Instructions Encounter Date Encounter Id Patient Instructions Last Modified By Organization Details Last Modified Time 03/08/2023 [id number] Documentation assistance provided by Faraz Wilkes, [email or web address] for {{MD Dr. Vanessa Bustos, DO*}}. The patient and family/friends if present were apprised of the use of a scribe through remote audio and all parties consented to conducting the visit in this manner. [email or web address] Not available 03/08/2023 11:04:14 Reason for Referral None Reported. Problems Name Problem SNOMED Code Status Onset Date Resolution Date Notes Provider Name and Address Organization Details Recorded Time Achilles tendinitis 75081468 Active Faraz Riser (TERMED) null, [facility] 3 16:22:44 Eating disorder 52258816 Active Faraz Riser (TERMED) null, [facility] 3 16:22:53 Plantar fasciitis 956719589 Active Faraz Riser (TERMED) null, [facility] 3 16:23:05 Prepatellar bursitis 21836381 Active Faraz Riser (TERMED) null, [facility] 3 16:23:18 Migraine 72786917 Active PaNhiag Erickson null, [facility] 3 10:58:49 Urinary incontinence 475376449 Active PaNhiag Erickson null, [facility] 3 11:08:37 Problem Notes None recorded. Procedures Surgical History Date Name Laterality Status Provider Name and Address Organization Details Recorded Time 03/24/20 23 introduction of tension free vaginal tape completed Keyana Erickson [facility] 04/03/2023 09:29:24 01/22/20 23 Date of Last Mammogram completed Keyana Erickson [facility] 03/08/2023 10:48:00 10/23/19 21 Date of Last Colonoscopy completed Keyana Erickson [facility] 03/08/2023 10:47:06 11/23/19 20 Laparoscopic cholecystectomy completed Keyana Erickson [facility] 03/08/2023 10:51:37 10/23/19 16 Date of Last Pap Smear completed Keyana Erickson [facility] 03/08/2023 10:48:23 10/23/19 13 lumpectomy of right breast completed Keyana Erickson [facility] 03/08/2023 10:51:05 10/23/19 13 lithotripsy completed Keyana Erickson [facility] [employer] 03/08/2023 11:00:48 10/23/19 09 procedure on eye completed Keyana Erickson [facility] 03/08/2023 10:53:19 10/23/19 05 operation on spinal cord completed Keyana Erickson [facility] 03/08/2023 10:51:15 10/23/19 00 delivery completed Keyana Erickson [facility] 03/08/2023 10:50:30 10/23/19 00 [facility] 10:52:16 10/23/18 94 [facility]08[facility]2023 10:50:24 Imaging Results None recorded. Procedure Notes None recorded. Medical Equipment None Reported. Allergies Allergen ID Allergen Name Allergen Category Reaction Reaction Severity Criticality Documentation Date Start Date Code Code System Note Provider Name and Address Organization Details Recorded Time 611308 lithium Not available Not available Not available Not available 03/02/2023 6448 RxNorm drug induc ed immun e throm bocyt openi a Faraz Riser (TERMED) null, [facility] 3 16:17:29 446108 olanzapin e medicatio n Not available Not available Not available 03/02/2023 09214 RxNorm drug induc ed immun e throm bocyt openi a Faraz Riser (TERMED) null, [facility] 3 16:17:35 637334 phenobarb ital medicatio n Not available Not available Not available 03/02/2023 8134 RxNorm drug induc ed immun e throm bocyt openi a Faraz Riser (TERMED) null, [facility] 3 16:17:44 538468 codeine medicatio n rash Not available Not available 03/02/2023 2670 RxNorm Faraz Riser (TERMED) null, [facility] 3 16:17:53 Medications Name Sig Start Date Stop Date Status Note LastModified by Organization Details LastModified Time amoxicillin 500 mg capsule TAKE 1 CAPSULE BY MOUTH TWICE A DAY 03/08 completed Not Available Not Available Not Available methocarbam ol 500 mg tablet TAKE 1 TABLET BY MOUTH 3 TIMES DAILY 03/08 completed Not Available Not Available Not Available buspirone 5 mg tablet TAKE 1 TABLET BY MOUTH 3 TIMES DAILY 03/08 completed Not Available Not Available Not Available gabapentin 600 mg tablet TAKE 1 TAB BY MOUTH EVERY MORNING, 1 TAB AT NOON, AND 2 TABS AT NIGHT 03/08 completed Not Available Not Available Not Available trazodone 50 mg tablet TAKE 0.5 - 2 TABS ORALLY EVERY DAY AT BEDTIME NEEDED FOR INSOMNIA 03/08 completed Not Available Not Available Not Available ibuprofen 800 mg tablet TAKE 1 TABLET (800 MG) BY MOUTH EVERY 6 HOURS NEEDED FOR OTHER (MILD AND/OR INFLAMMAT ORY PAIN) 04/03 completed Not Available Not Available Not Available clarithromy joseline 500 mg tablet TAKE 1 TABLET BY MOUTH 2 TIMES DAILY. 03/08 completed Not Available Not Available Not Available rizatriptan 10 mg tablet TAKE 1 TABS AT ONSET OF HEADACHE, MAY REPEAT EVERY 2 HOURS NEEDED, MAX 30 MG/24 HRS active Not Available Not Available No t Available metronidazo le 500 mg tablet TAKE 1 TABLET BY MOUTH TWICE DAILY. 03/08 completed Not Available Not Available Not Available Nicotrol 10 mg inhalation cartridge USE 1 INHALATIO N 4 TO 6 TIMES PER DAY NEEDED FOR NICOTINE CRAVINGS active Not Available Not Available No t Available ondansetron 8 mg disintegrat ing tablet Place 1 tablet every 6 hours by transling ual route as needed. active Not Available Not Available No t Available dextroamphe tamine-amph etamine 30 mg tablet Take 1 tablet twice a day by oral route. active Not Available Not Available No t Available gabapentin 800 mg tablet Take 1 tablet 3 times a day by oral route. active Not Available Not Available No t Available ibuprofen 600 mg tablet TAKE 1 TABLET BY MOUTH EVERY 6 HOURS NEEDED FOR PAIN. 03/08 completed Not Available Not Available Not Available ondansetron 4 mg disintegrat ing tablet TAKE 1 TABLET BY MOUTH EVERY 8 HOURS NEEDED FOR NAUSEA active Not Available Not Available No t Available lamotrigine 100 mg tablet Take 1 tablet every day by oral route. active Not Available Not Available No t Available oxycodone 5 mg tablet TAKE 1 TABLET BY MOUTH TWICE DAILY NEEDED FOR PAIN. 03/08 completed Not Available Not Available Not Available bupropion HCl XL 150 mg 24 hr tablet, extended release active Not Available Not Available Not Available metoprolol tartrate 25 mg tablet TAKE 1 TABLET BY MOUTH TWICE DAILY. active Not Available Not Available No t Available duloxetine 60 mg capsule,del ayed release 03/08 completed Not Available Not Available Not Available chlorhexidi ne gluconate 0.12 % mouthwash SWISH AND SPIT 15 ML BY MOUTH 2 TIMES A DAY FOR 7 DAYS. NOT COVERED 03/08 completed Not Available Not Available Not Available desvenlafax ine succinate ER 100 mg tablet,exte nded release 24 hr TAKE 1 TABLET BY MOUTH EVERY DAY active Not Available Not Available No t Available Senexon-S 8.6 mg-50 mg tablet TAKE 1-2 TABLETS BY MOUTH 2 TIMES DAILY. 04/03 completed Not Available Not Available Not Available Vitals Date Recorded Body weight Body mass index (BMI) Body height Systolic blood pressure Diastolic blood pressure Provider Name and Address Organization Details Last Updated DateTime 03/08/2023 72604.62 g 32.4 kg/m2 170.18 cm 124 mm[Hg] 72 mm[Hg] Keyana COBIAN [employer] 3 10:44:38 Date Recorded Body height Body mass index (BMI) Body weight Systolic blood pressure Diastolic blood pressure Provider Name and Address Organization Details Last Updated DateTime 04/03/2023 170.18 cm 32.9 kg/m2 59997.4 g 132 mm[Hg] 80 mm[Hg] Keyana Zepeda [employer] 3 11:40:06 Social History Question Answer Notes LastModified by Organizat ion Details LastModified Time Tobacco Smoking Status Current Every Day Smoker MANGO Anthony [employer] 03/08/2023 11:06:23 Do You Have An Advance Directive? No Information not available 03/08/2023 What Is Your Level Of Alcohol Consumption? None Information not available 03/08/2023 What Is Your Level Of Caffeine Consumption? None Drinks Gi Dry Gingerale Daily (caffeine Free) Information not available 03/08/2023 Are You Currently Employed? Yes Information not available 03/08/2023 What Is Your Occupation? [employer] Information not available 03/08/2023 History Of Domestic Violence No Information not available 03/08/2023 Spouse/Partners Name Jacob Meza Information not available 03/08/2023 What Is Your Relationship Status? Information not available 03/08/2023 Are You Sexually Active? Yes Information not available 03/08/2023 Do You Use Any Illicit Or Recreational Drugs? No Information not available 03/08/2023 Sex: Unknown Functional Status Question Answer Note LastModified by Organization D etails LastModified Time What is your exercise level? None Information not available 03/08/2023 Mental Status None recorded. Family History Relationship Description Onset Age of this Age Resolved Age Notes LastModified by Organization Details LastModified Time Mother Malignant tumor of breast 50 [email or web address] Not available 2022 16:24:34 Father Cerebrovascu lar accident [email or web address] Not available 08/2023 16:24:41 Father Coronary arterioscler osis [email or web address] Not available 2022 16:24:47 Father Hypertensive disorder [email or web address] Not available 2022 16:24:54 Father Hyperlipidem ia Not available 2022 10:56:16 Father Malignant neoplasm of skin Not available 2022 10:57:06 Sister Crohn's disease [email or web address] Not available 2022 16:25:01 Sister Xiong's esophagus [email or web address] Not available 2022 16:25:32 Sister Autoimmune disease Not available 2022 10:56:54 Son Hyperlipidem ia Not available 2022 10:56:19 Son Asthma Not available 10:56:31 Son Diabetes mellitus Not available 2022 10:58:03 Son Sleep apnea Not availab le 03/08/2023 11:01:53 Son Autistic disorder Not available 2022 11:02:16 Unspecified Relation Mixed anxiety and depressive disorder family Not available 2022 10:57:55 Daughter Migraine Not availabl e 03/08/2023 10:59:06 Daughter Spinal stenosis Not available 2022 11:01:40 Paternal Grandfather Hypertensive disorder Not available 2022 10:59:12 Paternal Grandfather Malignant tumor of lung Not available 2022 10:59:44 Paternal Grandmother Malignant neoplastic disease ?lung cancer Not available 03/08/2023 10:59:33 Maternal Grandmother Mixed anxiety and depressive disorder mental breakd own Not available 03/08/2023 11:01:17 Medical History Condition Response Psych- Eating Disorder Y Urology- Stones Y Gynecological History Statement/Question Response History of Endometriosis Y History of Abnormal PAP N Total lifetime partners Less than 5 Date of Last Mammogram 01/21/2023 Date of LMP Age at Menopause late 40's History of Infertility Y Sexually Active Y Age at Menarche: 14 Date of Last Colonoscopy 10/23/2020 Age at first intercourse 17 History of Sexually Transmitted Infectio n N Current Control Method Tubal Ligat ion Urinary Incontinence Symptoms Y What is the patient's current relationsh ip to the practice? Co-Management Date of Last Pap Smear 10/23/2015 Date of Last Cholesterol Screening 10/23 Obstetrics History GPAL:G 6 P 2 0 4 2 Type Value Multiple Births 0 Full Term 2 Induced 0 Spontaneous 4 Premature 0 Living 2 Ectopics 0 Total 6 Past Encounters Encounter ID Performer Location Encounter Start Date Encounter Closed Date Diagnosis/Indication Diagnosis SNOMED-CT Code Diagnosis ICD10 Code [id number] Vanessa Richardson DO [id number] JOSE MARTINEZ [address] [id number] 03/08/2023 10:25:22 03/08/2023 13:57:42 Female stress incontinence 42098455 N39.3 [id number] Vanessa Richardson DO [id number] JOSE MARTINEZ Y [address] [place] [id number] 04/03/2023 11:23:04 04/03/2023 15:54:26 Postoperative visit 431563806 Z09 Health Concerns Section Related Observation LastModified by Organization Detai ls LastModified Time None Recorded Concern Status LastModified by Organization Details LastModified Time None Recorded Advance Directives Directive N: Payers Encounter Date Sequence Insurance Name Policy Number Policy Deng Covered Member ID Deng Member ID Guarantor Name 03/08/2023 1 [place] [id number] Jacob Rainey [place] [id number] Nettie Susana 04/03/2023 1 [place] [id number] Jacob M Susana [id number] [place] Notes Date Note Type Note Provider Name and Address Organization Details Recorded Time 03/08/2023 text/html Urinary Incontin ence ([facility])Reported bypatient.Referred By:Ori Elias *Location:leakage of urine through urethra *Quality:leakage of urine with exertion *Context:postmenopaus al *Associated Signs & Symptoms:no dysuria; no pelvic pain *Modifying Factors:worse with physical exertion; worse with coughing; worse with sneezing; worse with laughingNotes:- Loses urine with lifting and coughing and sneezing. Vanessa Richardson, [id number] [facility] [facility] [address], [place], [address], [place] - [facility] [employer] 03/08/2023 11:16:12 04/03/2023 text/html Surgery Date: {{ enter in date 03/24/2023#}}.Rico quintanilla presents for her {{post-operative firs t post-operative* secon d post-operative third post-operative hyster oscopy follow-up}} evaluation.Surgical procedure: {{ Section Suction D&C Diagnostic Laparoscopy Robotic TLH, Bilateral Salpingectomy and Cystoscopy Hysterosco py, D&C and Endometrial ablation Tubal Ligation TVT-Placemen t TVT-O Vaginal Hysterectomy LAVH LAV H/BSO RoboticTLH Robo tic TLH, BSO with Cystoscopy Anterior & Posterior Repair a right oophorectomy a left oophorectomy Bilatera l Oophorectomy Dilation & Curettage Cystocele repair Rectocele repair mid-urethral sling Robotic assisted laparoscopic excision of endometriosis Robotic supracervical hysterectomy, Bilateral Salpingectomy, Sacralcolpopexy and Cystoscopy lysis of adhesions tubal dye study appendectomy cy stoscopy bilateral salpingo-ophorectomy sacrocervicopexy post erior repair perineorraphy Other: Tension-free TVT placement with Cystoscopy#}}.Indicat ion: {{Missed AB Myomatous Uterus Pelvic Pain Dysmenorrhea Men orrhagia Infertility Urinary stress incontinence Dysmenor lacey Post-menopausal bleeding Pelvic floor prolapse Cystocele Re ctocele Previous Breech Malpr esentation Failure to progress in labor Failure to descend distress Patient refusal of labor Failed induction of labor HELLP Syndrome Severe preeclampsia Other: U SI#}}.Pathology findings: {{benign adenocarcino ma products of conception JOSELINE 1 JOSELINE 2 JOSELINE 3 simple hyperplasia with atypia simple hyperplasia without atypia complex hyperplasia with atypia complex hyperplasia without atypia endometriosis none#}}.The procedure was done by: {{DO Mary Ahuja MD Thomas E. Grande, MD Kevin A. Hallman, MD Ronald F. Less, MD Annette N. Mies, MD Rachel S. Parritz, MD Myself#}}.She {{has no current complaints has no unusual complaints reports: h as no unusual complaints.#}}I was called out for delivery, so postoperative visit [place] [id number] [facility] [address] [facility],[address], [place], [address], [facility] [employer] 04/03/2023 14:37:30 OBGyn Episode No OBEpisode recorded.
[2024-10-16 15:23] VITALS: BP 119/84; PULSE 69; RESP 22; TEMP 36.4; O2SAT 97; BMI 31.6
--- NOTE | 2024-10-16 16:14 | CRLHL7_ITS ---
For Patients: As a result of the Century Cures Act, medical imaging exams and procedure reports are released immediately into your electronic medical record. You may view this report before your referring provider. If you have questions, please contact your health care provider. INDICATION: cough TECHNIQUE: Chest 2 views. COMPARISON: Chest x-ray 08/07/2017 and 10/11/2014 FINDINGS: The heart is normal in size. The pulmonary vasculature is within normal limits. The lungs are clear without focal consolidation, pleural effusion or pneumothorax. The bones are unremarkable. IMPRESSION: No acute process. Dictated by Tara James MD @ 10/16/2024 5:00:39 PM Dictated by: Tara James MD @ 10/16/2024 17:01:05 (Electronically Signed)
--- NOTE | 2024-10-16 16:19 | ED.NAVMDI ---
HPI - Nausea/Vomiting/Diarrhea General Date Seen: 10/16/24 Chief complaint: Nausea/Vomiting Stated complaint: Vomiting/diarrhea, lethargy Time Seen by Provider: 10/16/24 15:48 Source: patient and family Mode of arrival: ambulatory Limitations: no limitations History of Present Illness HPI Narrative: Patient is a 51-year-old female who presents here with nausea vomiting and diarrhea, just feeling unwell for least approximately 2 weeks she feels is getting worse however. Unable to really keep anything down, any re time she drinks fluids she feels like she must throw up. She notes low-grade fevers also up to 100.1 at home. Her 's been battling a cough for the last week or so, and she has been coughing more also. She describes no abdominal pain associated with this, no rashes, no dysuria or frequency of urination in fact she finds she is not peeing that well. She started will go be approximately 8 weeks ago, and has been titrating up. She wonders if this has something to do with that. Previous history of a cholecystectomy, Smoker no significant history of alcohol use. Context: sick contacts Associated symptoms: myalgias, cough, diaphoresis, fever/chills, loss of appetite, malaise, nausea/vomiting, weakness and fatigue Related Data Previous Rx's ?Medication ?Instructions ?Recorded ondansetron 8 mg disintegrating 8 mg .Route Q6H PRN nausea and 11/03/22 tablet vomiting #30 tabs desvenlafaxine succinate 100 mg 100 mg PO QDAY #90 tabs 09/19/23 tablet,extended release 24 hr gabapentin 300 mg capsule 600 mg (2 x 300 mg) PO 3XD #360 02/14/24 caps lamotrigine 100 mg tablet 100 mg PO QDAY #90 tabs 06/13/24 (Lamictal) metoprolol tartrate 25 mg tablet 25 mg PO BID #180 tabs 06/13/24 dextroamphetamine-amphetamine 30 30 mg PO BID #60 tabs 08/19/24 mg tablet rizatriptan 10 mg tablet 10 mg PO ONCE #18 tabs 09/16/24 semaglutide (weight loss) 1 mg/0.5 1 mg (0.5 mL) subcut Q7D #2 mL 10/14/24 mL subcutaneous pen injector (Wegovy) ondansetron 4 mg disintegrating 4 mg PO TID PRN nausea and 10/16/24 tablet vomiting #10 tabs Allergies Allergy/AdvReac Type Severity Reaction Status Date / Time lithium Allergy Severe drug Verified 08/19/24 16:53 induced immune thrombocytopenia phenobarbital Allergy Severe drug Verified 08/19/24 16:53 induced immune thrombocytopenia codeine Allergy Mild Rash Verified 08/19/24 16:53 Review of Systems Status of ROS: Reports: 10 or more systems reviewed and unremarkable except as noted in History and below [facility] Medical History Post-op pain ?G89.18 - Other acute postprocedural pain (ICD-10) Hypoglycemia ?E16.2 - Hypoglycemia, unspecified (ICD-10) Vertigo ?R42 - Dizziness and giddiness (ICD-10) Reactive gastropathy ?K31.89 - Other diseases of stomach and duodenum (ICD-10) Weight loss ?R63.4 - Abnormal weight loss (ICD-10) Sprain of medial collateral ligament of left knee, sequela ?S83.412S - Sprain of medial collateral ligament of left knee, sequela (ICD-10) Acute meniscal tear of knee ?S83.209A - Unspecified tear of unspecified meniscus, current injury, unspecified knee, initial encounter (ICD-10) Thrombocytopenia ?D69.6 - Thrombocytopenia, unspecified (ICD-10) Eating disorder (05/03/13) ?F50.9 - Eating disorder, unspecified (ICD-10) Calculus of kidney (05/03/13) ?N20.0 - Calculus of kidney (ICD-10) Plantar fasciitis, bilateral ?M72.2 - Plantar fascial fibromatosis (ICD-10) Achilles tendinitis ?M76.60 - Achilles tendinitis, unspecified leg (ICD-10) Surgical History History of spinal surgery (05/03/13) ?Z98.890 - Other specified postprocedural states (ICD-10) History of laparoscopic cholecystectomy ?Z90.49 - Acquired absence of other specified parts of digestive tract (ICD-10) History of section (07/12/13) ?Z98.891 - History of uterine scar from previous surgery (ICD-10) History of colonoscopy with polypectomy ?Z98.890 - Other specified postprocedural states (ICD-10) ?Z86.010 - Personal history of colonic polyps (ICD-10) Family History Mother Breast cancer, Onset Age: 50 Father Stroke Coronary artery disease High blood pressure Sister Crohn disease Xiong syndrome Other Hyperlipidemia Social History Narrative: consumes alcohol occasionally does not use illicit drugs smoker- 1 ppd for many years Smoking Status: Current every day smoker Second hand tobacco smoke exposure: No How often do you have a drink containing alcohol: 2-4 times a month AUDIT-C Alcohol total score: 2 Non-prescribed substance use: denies use service: No Exam Narrative: Exam Narrative: Patient is seen in room 2 she is in no apparent distress very nice with her , pupils equal round reactive to light there is no scleral icterus redness TMs are normal oropharynx is little bit dry her neck is supple full range of motion with absence of meningismus GCS is 15/15 cranial nerves 3-12 are grossly normal. Her chest has occasional wheezes throughout all lung bonilla. On expiration no signs respiratory distress there are no crackles and no splinting. Heart sounds no clicks murmurs or gallops are noted. Her abdomen is soft and a little bit obese there is no guarding no organomegaly, bowel sounds are quiet, she moves all extremities independently well with absence of any rashes, neurologically intact in her upper lower extremities, Const: Vital Signs, click to edit/add: Vital Signs - 24 hr 10/16/24 15:23 Temperature 97.5 F L Pulse Rate [Pulse Oximeter] 69 Respiratory Rate 22 Blood Pressure [Ri ght Upper Arm] 119/84 Pulse Oximetry 97 Oxygen Delivery Me thod Room Air Documenting provider has reviewed patient's vital signs: yes Course Reevaluation(s) Time of Reevaluation #1: 19:29 Reevaluation #1: Patient reports feeling little bit better after the Zofran and fluids. Her labs look like she has a little bit dry. I would recommend that she use the Zofran for her nausea vomiting and follow-up with her primary care physician as I think that a lot of this is to do with will go Wegovy , reassuring other lab, she will return as needed. Vital Signs Vital signs: Initial Vital Signs Temperature 97.5 F L 10/16/24 15:23 Temperature Source Temporal Artery Scan 10/16/24 15:23 Pulse Rate 69 10/16/24 15:23 Respiratory Rate 22 10/16/24 15:23 Blood Pressure 119/84 10/16/24 15:23 Blood Pressure Mean 95 10/16/24 15:23 Pulse Oximetry 97 10/16/24 15:23 Oxygen Delivery Method Room Air 10/16/24 15:23 Vital Signs Temperature 97.5 F L 10/16/24 15:23 Pulse Rate 69 10/16/24 15:23 Respiratory Rate 22 10/16/24 15:23 Blood Pressure 119/84 10/16/24 15:23 Pulse Oximetry 97 10/16/24 15:23 Oxygen Delivery Method Room Air 10/16/24 15:23 Temperature 97.5 F L 10/16/24 15:23 Pulse Rate 69 10/16/24 15:23 Respiratory Rate 22 10/16/24 15:23 Blood Pressure 119/84 10/16/24 15:23 Pulse Oximetry 97 10/16/24 15:23 Oxygen Delivery Method Room Air 10/16/24 15:23 Medications Administered Medications: Discontinued Medications Generic Name Dose Route Start Last Admin Trade Name Freq PRN Reason Stop Dose Admin Sodium Chloride 1,000 mls @ 1,000 mls/hr 10/16/24 16:15 10/16/24 19:11 0.9 % Sodium Chloride 1000 Ml IV 10/16/24 17:14 Infused .Q1H GEOVANNI Infusion Sodium Chloride 1,000 mls @ 1,000 mls/hr 10/16/24 18:15 10/16/24 18:46 0.9 % Sodium Chloride 1000 Ml IV 10/16/24 19:14 1,000 mls/hr .Q1H GEOVANNI Administration Ondansetron HCl 4 mg 10/16/24 16:13 10/16/24 16:37 Ondansetron 2 Mg/Ml Inj IVP 10/16/24 16:14 4 mg ONCE ONE Administration MDM - Nausea/Vomiting/Diarrhea MDM Narrative Medical decision making narrative: Differential diagnosis includes but is not limited to viral gastroenteritis, drug food poisoning, pyloric stenosis, gastritis, pancreatitis, hepatitis, cholecystitis, appendicitis, bowel obstruction, hyperemesis, cyclic vomiting syndrome, bulimia nervosa, migraine headache, motion sickness and medication side effect. These include the life threatening complications of appendicitis, drug food poisoning and bowel obstruction. We will do some labs will give fluids I will give her some Zofran I do think there is a high chance that this can be due to her G LP 1 medication that she has recently started. However we need to rule out other issues. I will do the LFTs basic metabolic profile CBC urinalysis and also do a chest x-ray along with viral studies. Medical Records Attestation: I reviewed the patient's medical records. Lab Data Attestation: I reviewed the patient's lab results. Labs: Lab Results 10/16/24 10/16/24 10/16/24 Range/Units 16:40 16:46 17:50 WBC 6.93 (4.50-11.00) K/uL RBC 5.38 H (4.00-5.20) m/uL Hgb 15.8 (12.0-16.0) gm/dL Hct 46.4 (33.0-51.0) % MCV 86 (80-100) fL MCH 29 (26-34) pg MCHC 34 (32-36) gm/dL RDW Coeff of [place] 12.5 (11.5-15.5) % Plt Count 255 (140-440) K/uL Neut % (Auto) 59.0 (42.0-72.0) % Lymph % (Auto) 33.8 (20-44) % [place] % (Auto) 6.2 (0.0-11.0) % Eos % (Auto) 0.6 (0.0-7.0) % Baso % (Auto) 0.3 (0.0-3.0) % Neut # (Auto) 4.09 (1.7-7.0) K/uL Lymph # (Auto) 2.34 (0.90-2.90) K/uL [place] # (Auto) 0.40 (0.00-0.90) K/UL Eos # (Auto) 0.04 (0.00-0.50) K/uL Baso # (Auto) 0.02 (0.00-0.30) K/uL Abs Immat Gran (auto) 0.01 (0.00-0.30) K/uL Imm/Tot Granulo (auto) 0.1 % Sodium 138 (135-149) mmol/L Potassium 4.0 (3.6-5.1) mmol/L Chloride 103 (96-114) mmol/L Carbon Dioxide 25 (20-32) mmol/L Anion Gap 10 (7-15) mEq/L BUN 18 (7-30) mg/dL Creatinine 0.8 (0.5-1.5) mg/dL Estimated Creat Clear 77.32 Estimated GFR 85 ml/min Glucose 100 (60-115) mg/dL Lactate 1.3 (0.5-1.9) mmol/L Calcium 9.5 (8.4-10.6) mg/dL Total Bilirubin 0.8 (0.1-1.5) mg/dL Direct Bilirubin 0.3 (0.0-0.5) mg/dL AST 29 (12-35) U/L ALT 28 (4-35) U/L Alkaline Phosphatase 84 (40-150) U/L C-Reactive Protein < 0.5 L (0.5-1.0) mg/dL Total Protein 7.9 (6.0-8.3) g/dL Albumin 4.8 (3.3-5.0) g/dL Urine Color Dark yellow (Yellow) Urine Appearance Cloudy A (Clear) Urine pH 6.0 (5.0-8.5) Ur Specific [place] 1.025 (1.000-1.030) Urine Protein 2+ A (Negative) Urine Glucose (UA) Negative (Negative) Urine Ketones 2+ A (Negative) Urine Blood Trace-intact A (Negative) Urine Nitrite Negative (Negative) Urine Bilirubin 2+ A (Negative) Urine Urobilinogen 1.0 (0.2-1.0) Ur Leukocyte Esterase Negative (Negative) Urine RBC 0-2 (0-2) Urine WBC 5-10 A (0-5) Ur Squamous Epith Cells Moderate A (None-Few) Urine Bacteria Few A (None) Fine Granular Casts Few A (None) SARS-CoV-2 (PCR) Negative SARS-CoV-2 (Negative) Influenza Type A (PCR) Negative PCR FLU A (Negative) Influenza Type B (PCR) Negative PCR FLU B (Negative) RSV (PCR) Negative PCR RSV (Negative) Imaging Data Chest x-ray: Attestation: I have reviewed the pertinent imaging results. My impression: No acute change Radiologist's impression: [address] [address] Diagnostic Imaging Report Patient: Nettie Meza MR#: [id number] : 1965 Acct:[id number] Loc: ED Service Date: 10/16/[address]: Ordering Physician: Prabhu Strange M.D. Date of Service: 10/16/24 Procedure(s): XR chest 2V Accession Number(s): [id number] cc: Vanessa Barbour M.D.; Prabhu Strange M.D.~ For Patients: As a result of the Cures Act, medical imaging exams and procedure reports are released immediately into your electronic medical record. You may view this report before your referring provider. If you have questions, please contact your health care provider. INDICATION: cough TECHNIQUE: Chest 2 views. COMPARISON: Chest x-ray 08/07/2017 and 10/11/2014 FINDINGS: The heart is normal in size. The pulmonary vasculature is within normal limits. The lungs are clear without focal consolidation, pleural effusion or pneumothorax. The bones are unremarkable. IMPRESSION: No acute process. Dictated by Tara James MD @ 10/16/2024 5:00:39 PM Dictated by: Tara James MD @ 10/16/2024 17:01:05 (Electronically Signed) Discharge Plan Discharge Clinical Impression: Dehydration, Adverse effects of medication Patient Disposition: Home w/ Parent or Adult Condition: Stable Instructions: Dehydration (DC) Additional Instructions: Home rest continue with fluids use of Zofran for nausea vomiting, follow-up primary care consideration of going off of your G LP 1 medication. Return if fevers chills worsening symptoms. Activity Level: Light activity Discharge Diet: Regular Prescriptions: New ondansetron 4 mg tablet,disintegrating 4 mg PO TID PRN (Reason: nausea and vomiting) Qty: 10 0RF No Action ondansetron 8 mg tablet,disintegrating 8 mg .ROUTE Q6H PRN (Reason: nausea and vomiting) Qty: 30 3RF Rx Instructions: 8 mg every 6 hours PRN; desvenlafaxine succinate 100 mg tablet extended release 24 hr 100 mg PO QDAY Qty: 90 3RF dextroamphetamine-amphetamine 30 mg tablet 30 mg PO BID Qty: 60 0RF gabapentin 300 mg capsule 600 mg PO 3XD Qty: 360 3RF lamotrigine [Lamictal] 100 mg tablet 100 mg PO QDAY Qty: 90 3RF metoprolol tartrate 25 mg tablet 25 mg PO BID Qty: 180 3RF rizatriptan 10 mg tablet 10 mg PO ONCE Qty: 18 1RF Rx Instructions: Take 1 tab at onset of headache, may repeat every 2hrs as needed. MAX 30MG/24HRS Wegovy 1 mg/0.5 mL pen injector 1 mg subcut Q7D Qty: 2 0RF Follow Up/Referrals: Vanessa Barbour MD [Primary Care Provider] - Stand Alone Forms: [facility] Info Instructions
[2024-10-16] MEDS: 0.9 % SODIUM CHLORIDE 1000 ml 1,000 ML IV ×2 (16:37→18:46)
[2024-10-16] MEDS: ONDANSETRON 2 MG/ML inj 4 MG IVP (16:37)
[2024-10-16 16:52] LABS: Lactate* 1.3 mmol/L (0.5-1.9)
[2024-10-16 16:53] LABS: Basophils Absolute Auto 0.02 K/uL (0.00-0.30); Basophils Percent Auto 0.3 % (0.0-3.0); Eosinophils Absolute Auto 0.04 K/uL (0.00-0.50); Eosinophils Percent Auto 0.6 % (0.0-7.0); Hematocrit 46.4 % (33.0-51.0); Hemoglobin* 15.8 gm/dL (12.0-16.0); Immature Granulocytes Abs Auto 0.01 K/uL (0.00-0.30); Immature Granulocytes Pct Auto 0.1 %; Lymphocytes Absolute Auto 2.34 K/uL (0.90-2.90); Lymphocytes Percent Auto 33.8 % (20-44); Mean Corpuscular HGB Conc 34 gm/dL (32-36); Mean Corpuscular Hemoglobin 29 pg (26-34); Mean Corpuscular Volume 86 fL (80-100); Monocytes Percent Auto 6.2 % (0.0-11.0); Neutrophils Absolute Auto 4.09 K/uL (1.7-7.0); Platelet Count* 255 K/uL (140-440); RDW Coefficient of Variation % 12.5 % (11.5-15.5); Red Blood Count 5.38 m/uL (4.00-5.20); White Blood Count* 6.93 K/uL (4.50-11.00)
[2024-10-16 17:07] LABS: Slide Review Reflex No
[2024-10-16 17:11] LABS: Albumin* 4.8 g/dL (3.3-5.0); Chloride* 103 mmol/L (96-114); Sodium* 138 mmol/L (135-149)
[2024-10-16 17:13] LABS: Creatinine* 0.8 mg/dL (0.5-1.5); Est. Creatinine Clearance* 77.32; Estimated Glomerular Filt Rate 85 ml/min
[2024-10-16 17:14] LABS: Alanine Aminotransferase* 28 U/L (4-35); Alkaline Phosphatase* 84 U/L (40-150); Anion Gap 10 mEq/L (7-15); Aspartate Amino Transferase* 29 U/L (12-35); Bilirubin Direct* 0.3 mg/dL (0.0-0.5); Bilirubin Total* 0.8 mg/dL (0.1-1.5); Blood Urea Nitrogen* 18 mg/dL (7-30); Carbon Dioxide* 25 mmol/L (20-32); Glucose* 100 mg/dL (60-115); Total Protein* 7.9 g/dL (6.0-8.3)
[2024-10-16 17:15] LABS: Calcium* 9.5 mg/dL (8.4-10.6)
[2024-10-16 17:17] LABS: C Reactive Protein* < 0.5 mg/dL (0.5-1.0)
[2024-10-16 17:22] LABS: PCR FLU A Negative PCR FLU A (Negative); PCR FLU B Negative PCR FLU B (Negative); PCR RSV Negative PCR RSV (Negative); SARS PCR* Negative SARS-CoV-2 (Negative)
[2024-10-16 17:57] LABS: Appearance Urine Cloudy (Clear); Bilirubin Urine 2+ (Negative); Blood Urine Trace-intact (Negative); Color Urine Dark yellow (Yellow); Glucose Urine Negative (Negative); Ketones Urine 2+ (Negative); Leukocyte Esterase Urine Negative (Negative); Nitrite Urine Negative (Negative); Protein Urine 2+ (Negative); Specific Gravity Urine 1.025 (1.000-1.030)
[2024-10-16 18:08] LABS: RBC Urine 0-2 (0-2)
[2024-10-16 18:09] LABS: Bacteria Urine Few; Fine Granular Casts Urine Few; Squamous Epithelial Cell Urine Moderate (None-Few)
== END 2024-10-16 20:11 | disposition home or self-care (01) ==
PROVIDERS: Emergency Provider Family Medicine; PCP Family Medicine
DX: E86.0 Dehydration (principal); T50.905A Adverse effect of unspecified drugs, medicaments and biological substances, initial encounter
CPT/HCPCS: 36415; 71046; 80048; 80076; 81001; 83605; 85025; 86140; 87086; 87631; 96374; 99283; 99284; J2405; J7030

== ENCOUNTER 2024-12-31 12:44 | Outpatient (CLI) | payer BC, SELFPAY | END 2024-12-31 12:45 | disposition home or self-care (01) | PROVIDERS: PCP Family Medicine; Visit Provider Family Medicine | DX: R55 Syncope and collapse (principal); E78.5 Hyperlipidemia, unspecified; I10 Essential (primary) hypertension; E66.9 Obesity, unspecified; H81.10 Benign paroxysmal vertigo, unspecified ear | CPT/HCPCS: 80053; 80061; 82043; 82570; 84443; 86140 ==

== ENCOUNTER 2025-01-02 07:19 | Outpatient (CLI) | payer BC, SELFPAY | END 2025-01-02 07:20 | disposition home or self-care (01) | LOC: NFLDREF 01-05 07:06 | PROVIDERS: PCP Family Medicine; Referring Provider Family Medicine; Visit Provider Family Medicine | DX: E78.5 Hyperlipidemia, unspecified (principal); I10 Essential (primary) hypertension | CPT/HCPCS: 82043; 82570 ==

== ENCOUNTER 2025-01-07 13:40 | Outpatient (CLI) | payer BC, SELFPAY ==
--- NOTE | 2025-01-07 14:36 | PC.NURSE ---
Went through assessment questions with patient. Concerns for dizziness, blurred vision and hypertension (per pt report). Patient has a brain MRI tomorrow. Reviewed case with Dr. Strange and asked that we change the order to a CA treadmill stress echo. A prior auth was completed stat and we were okay to proceed.
[2025-01-07 15:03] VITALS: BP 120/70; PULSE 87; RESP 16
--- NOTE | 2025-01-07 15:42 | W.PM.STED ---
Stress Test Note Date Date Seen: 01/07/25 Date of test: 01/07/25 Providers Primary care provider: Vanessa Barbour Stress test physician: Prabhu Strange Stress Test Note Stress test ordered: Stress Echo Indication for test: Syncope and shortness of breath Results discussion: Patient is a very nice 51 year female that is seen for the above test, she nicely had a regular stress test order, and I changed to stress echo to the history of the syncope. Cardiac stress test medical history form is reviewed. Patient understands the risks benefits and side effects including non diagnosis would like to proceed. Pretest EKG shows normal sinus rhythm with a ventricular rate 84 and a blood pressure [address] wave changes are noted. Standard Yan[facility] protocol is followed, for a total of 7 minutes 2nd, and she achieved a total of 8.5 Mets, test is terminated because of fatigue, her max arm was 145 which is 105% of the maximum, during this test she had no chest pain or any significant anginal symptoms. There is no evidence of any dysrhythmias, and there was no evidence of any ST wave changes suggestive of ischemia. She recovered normally. Impression: Negative electrographic portion of stress echo, Follow up suggested: Await echo images, clinical correlation with these will be needed, patient left this testing facility in excellent condition.
== END 2025-01-07 15:04 ==
PROVIDERS: PCP Family Medicine; Visit Provider Family Medicine
DX: R06.02 Shortness of breath (principal); R55 Syncope and collapse
CPT/HCPCS: 93016; 93325; 93351

== ENCOUNTER 2025-01-14 14:52 | Outpatient (CLI) | payer BC, SELFPAY | END 2025-01-14 14:53 | disposition home or self-care (01) | LOC: MRI 14:52 | PROVIDERS: PCP Family Medicine; Visit Provider Family Medicine | DX: R55 Syncope and collapse (principal); G43.109 Migraine with aura, not intractable, without status migrainosus; H81.10 Benign paroxysmal vertigo, unspecified ear; R26.89 Other abnormalities of gait and mobility | CPT/HCPCS: 70551 ==

== ENCOUNTER 2025-02-06 12:46 | Outpatient (CLI) | payer BC, SELFPAY | END 2025-02-06 12:47 | disposition home or self-care (01) | PROVIDERS: PCP Family Medicine; Visit Provider Family Medicine | DX: I10 Essential (primary) hypertension (principal); Z79.899 Other long term (current) drug therapy | CPT/HCPCS: 80053; 82306 ==

== ENCOUNTER 2025-05-27 16:44 | Outpatient (CLI) | payer BC, SELFPAY ==
--- NOTE | 2025-05-27 16:45 | CRLHL7_ITS ---
For Patients: As a result of the Century Cures Act, medical imaging exams and procedure reports are released immediately into your electronic medical record. You may view this report before your referring provider. If you have questions, please contact your health care provider. INDICATION: Lung cancer screening. History of smoking. TECHNIQUE: Low-dose lung cancer screening non-contrast CT chest. Dose reduction techniques were used. COMPARISON: None. FINDINGS: NODULES: None. LUNGS AND PLEURA: Linear scarring within the right lung adjacent to the minor fissure. MEDIASTINUM: No adenopathy. CORONARY ARTERY CALCIFICATION: Mild. LIMITED UPPER ABDOMEN: Gallbladder absent. MUSCULOSKELETAL: No fracture. IMPRESSION: Negative for lung cancer screening purposes. LUNG-RADS CATEGORY: 1: Negative. RADIOLOGIST RECOMMENDATION: Continue annual screening, if eligible, with low-dose CT chest in 12 months. Please note that all CT scans at this facility use dose modulation, iterative reconstruction, and/or weight-based dosing when appropriate to reduce radiation dose to as low as reasonably achievable. Dictated by Flako Barlow MD @ 05/28/2025 2:00:13 PM (Electronically Signed)
== END 2025-05-27 16:45 | disposition home or self-care (01) ==
LOC: CT 16:44
PROVIDERS: PCP Family Medicine; Visit Provider Family Medicine
DX: Z12.2 Encounter for screening for malignant neoplasm of respiratory organs (principal); Z87.891 Personal history of nicotine dependence
CPT/HCPCS: 71271

== ENCOUNTER 2025-05-29 16:45 | Outpatient (RCR) | payer BC, SELFPAY | END 2025-09-26 23:59 | disposition home or self-care (01) | PROVIDERS: PCP Family Medicine; Visit Provider Family Medicine | DX: M43.6 Torticollis (principal); H81.10 Benign paroxysmal vertigo, unspecified ear; Z51.89 Encounter for other specified aftercare | CPT/HCPCS: 97012; 97032; 97110; 97112; 97140; 97162 ==

== ENCOUNTER 2025-09-27 16:36 | Emergency (ER) | payer BC, SELFPAY ==
[2025-09-27 16:50] VITALS: BP 118/74; PULSE 74; RESP 16; TEMP 36.7; O2SAT 99; BMI 24.7
--- NOTE | 2025-09-27 17:14 | CRLHL7_ITS ---
For Patients: As a result of the Century Cures Act, medical imaging exams and procedure reports are released immediately into your electronic medical record. You may view this report before your referring provider. If you have questions, please contact your health care provider. Indication: LEFT FLANK PAIN, HX STONES Technique: Noncontrast CT abdomen and pelvis Please note that all CT scans at this facility use dose modulation, iterative reconstruction, and/or weight-based dosing when appropriate to reduce radiation dose to as low as reasonably achievable. Comparison: 01/08/2018 Findings: Nonobstructing stone upper pole right kidney measures 4.7 millimeters. No left-sided stones. No perinephric stranding or hydronephrosis. Both ureters are normal. Normal bladder. Lung bases are clear. Normal liver. Gallbladder absent. Normal pancreas and spleen. Normal adrenal glands. Incidental simple right renal cyst measures 1.1 cm. No adenopathy. No pelvic mass. No bowel obstruction, free air, free fluid or abscess. Normal appendix. Degenerative disc disease L5-S1. Impression: Nonobstructing 4.7 millimeter stone right kidney. No left-sided stone. Please note that all CT scans at this facility use dose modulation, iterative reconstruction, and/or weight-based dosing when appropriate to reduce radiation dose to as low as reasonably achievable. Dictated by Flako Barlow MD @ 09/27/2025 5:39:56 PM (Electronically Signed)
--- NOTE | 2025-09-27 17:15 | ED.GENADULT ---
HPI - General Adult General Chief complaint: Abdominal Pain Stated complaint: Lower abdominal pain Time Seen by Provider: 09/27/25 16:37 History of Present Illness HPI narrative: This 60-year-old female comes in reporting left flank pain over the past 2-3 days. She states that she has had history of passing 7 kidney stones in the past and these symptoms feel similar. She reports some darker colored urine. She states that she has been drinking plenty of fluids but symptoms seem to be worsening. She does not report any nausea or vomiting. Related Data Previous Rx's ?Medication ?Instructions ?Recorded desvenlafaxine succinate 100 mg 100 mg PO QDAY #90 tabs 02/06/25 tablet,extended release 24 hr gabapentin 300 mg capsule 600 mg (2 x 300 mg) PO 3XD #360 02/06/25 caps lamotrigine 100 mg tablet 100 mg PO QDAY #90 tabs 02/06/25 (Lamictal) metoprolol tartrate 25 mg tablet 25 mg PO BID #180 tabs 02/06/25 semaglutide (weight loss) 2.4 2.4 mg (0.75 mL) subcut Q7D #3 mL 04/21/25 mg/0.75 mL subcutaneous pen injector dextroamphetamine-amphetamine ER 30 mg PO QAM #30 caps 08/28/25 30 mg 24hr capsule,extend release (Adderall XR) rizatriptan 10 mg tablet 10 mg PO Q2-4H #18 tabs 09/08/25 Allergies Allergy/AdvReac Type Severity Reaction Status Date / Time lithium Allergy Severe drug Verified 08/28/25 13:37 induced immune thrombocytopenia phenobarbital Allergy Severe drug Verified 08/28/25 13:37 induced immune thrombocytopenia codeine Allergy Mild Rash Verified 08/28/25 13:37 Review of Systems Status of ROS: Reports: 10 or more systems reviewed and unremarkable except as noted in History and below Narrative: Constitutional: No fevers, no weight gain or loss. Eyes: No discharge. No vision changes. HENT: No congestion, no sore throat, no ear pain. Cardiovascular: No chest pain, no palpitations. Respiratory: No shortness of breath, no wheezes, no cough. Gastrointestinal: No vomiting, no diarrhea. Left flank and abdominal pain as described above. Genitourinary: No dysuria, no hematuria. Musculoskeletal: Normal range of motion. Skin: No rashes, no pruritis. Neurological: No dizziness, weakness, sensory change, speech change. Endo/Heme/Allergies: No bruising or bleeding. No polydipsia. Pysch: no suicidality, no anxiety, no insomnia. All other systems reviewed and are negative. [facility] Medical History Syncope ?R55 - Syncope and collapse (ICD-10) Reactive gastropathy ?K31.89 - Other diseases of stomach and duodenum (ICD-10) Acute meniscal tear of knee ?S83.209A - Unspecified tear of unspecified meniscus, current injury, unspecified knee, initial encounter (ICD-10) Thrombocytopenia ?D69.6 - Thrombocytopenia, unspecified (ICD-10) Eating disorder (05/03/13) ?F50.9 - Eating disorder, unspecified (ICD-10) Calculus of kidney (05/03/13) ?N20.0 - Calculus of kidney (ICD-10) Plantar fasciitis, bilateral ?M72.2 - Plantar fascial fibromatosis (ICD-10) Achilles tendinitis ?M76.60 - Achilles tendinitis, unspecified leg (ICD-10) Surgical History History of spinal surgery (05/03/13) ?Z98.890 - Other specified postprocedural states (ICD-10) History of laparoscopic cholecystectomy ?Z90.49 - Acquired absence of other specified parts of digestive tract (ICD-10) History of section (05/03/13) ?Z98.891 - History of uterine scar from previous surgery (ICD-10) Family History Mother Breast cancer, Onset Age: 50 Osteoporosis Father Stroke Coronary artery disease High blood pressure Hyperlipidemia Sister Crohn disease Xiong syndrome Paternal Grandfather Hyperlipidemia Paternal Grandmother Hyperlipidemia Maternal Grandmother Osteoporosis Thyroid disease Social History Narrative: consumes alcohol occasionally does not use illicit drugs smoker- 1 ppd for many years What is your current living situation?: I presently have a place to live Problems where you live: no known problems In the past 12 months, utilities in danger of being shut off: no In past 12 months, lack of transportation kept you from medical appts, meetings, work, or getting things needed for daily living: no In the past 12 mos, have been you worried that your food would run out before you had money to buy more?: never true In the past 12 mos, the food you bought just didn't last and you didn't have money to buy more?: never true Smoking Status: Current every day smoker Second hand tobacco smoke exposure: No How often do you have a drink containing alcohol: 2-4 times a month AUDIT-C Alcohol total score: 2 Non-prescribed substance use: denies use How often does anyone, including family, friends and others, physically hurt you: never How often does anyone, including family, friends and others, insult or talk down to you: sometimes How often does anyone, including family, friends and others, threaten you with harm: never How often does anyone, including family, friends and others, scream or curse at you: never service: No Health Related Social Needs: Other personal risk factors, not elsewhere classified (Z91.89) Exam Narrative: Exam Narrative: Constitutional: Well-developed, well-nourished, no acute distress. HEENT: Normocephalic, atraumatic. Neck: Normal range of motion. Nontender. Supple. Heart: Intact distal pulses. Lungs: No chest discomfort. No wheezes, rhonchi, or rales. Abdomen: Diffuse left flank and left abdominal pain. No rebound tenderness. Back: Normal range of motion. Extremities: Normal range of motion. No injury. Skin: Intact. No rash. Warm. No erythema or pallor. Neurologic: No altered sensation. No weakness. Alert and oriented. Psychiatric: No suicidality. No anxiety or depression. No insomnia. Nursing notes and vitals signs are reviewed. Const: Vital Signs, click to edit/add: Vital Signs - 24 hr 09/27/25 16:50 Temperature 98.1 F Pulse Rate [Pulse Oximeter] 74 Respiratory Rate 16 Blood Pressure [Ri ght Upper Arm] 118/74 Pulse Oximetry 99 Oxygen Delivery Me thod Room Air Course Vital Signs Vital signs: Initial Vital Signs Temperature 98.1 F 09/27/25 16:50 Temperature Source Temporal Artery Scan 09/27/25 16:50 Pulse Rate 74 09/27/25 16:50 Respiratory Rate 16 09/27/25 16:50 Blood Pressure 118/74 09/27/25 16:50 Blood Pressure Mean 88 09/27/25 16:50 Blood Pressure Position Supine 09/27/25 16:50 Pulse Oximetry 99 09/27/25 16:50 Oxygen Delivery Method Room Air 09/27/25 16:50 Vital Signs Temperature 98.1 F 09/27/25 16:50 Pulse Rate 74 09/27/25 16:50 Respiratory Rate 16 09/27/25 16:50 Blood Pressure 118/74 09/27/25 16:50 Pulse Oximetry 99 09/27/25 16:50 Oxygen Delivery Method Room Air 09/27/25 16:50 Temperature 98.1 F 09/27/25 16:50 Pulse Rate 74 09/27/25 16:50 Respiratory Rate 16 09/27/25 16:50 Blood Pressure 118/74 09/27/25 16:50 Pulse Oximetry 99 09/27/25 16:50 Oxygen Delivery Method Room Air 09/27/25 16:50 Medications Administered Medications: Discontinued Medications Generic Name Dose Route Start Last Admin Trade Name Freq PRN Reason Stop Dose Admin Hydromorphone HCl 0.5 mg 09/27/25 17:13 09/27/25 17:36 Hydromorphone 0.5 Mg/0.5 Ml Inj IVP 09/27/25 17:14 0.5 mg ONCE ONE Administration Ketorolac Tromethamine 30 mg 09/27/25 17:13 09/27/25 17:36 Ketorolac 30 Mg/Ml Inj IVP 09/27/25 17:14 30 mg ONCE ONE Administration Ondansetron HCl 4 mg 09/27/25 17:13 09/27/25 17:36 Ondansetron 2 Mg/Ml Inj IVP 09/27/25 17:14 4 mg ONCE ONE Administration Medical Decision Making MDM Narrative Medical decision making narrative: This 60-year-old female comes in with left flank pain and typical symptoms of ureteral calculus. She has had 7 stones pass in the past and states that symptoms feel similar. An IV was established where she received Dilaudid, Toradol, and Zofran. This brought great relief to her symptoms. CT imaging is obtained and shows no obstructive stone on the left side. She has a nonobstructive stone a up in the right kidney. There are no other acute findings on CT imaging. Urinalysis shows no sign of infection but there are 2-5 red blood cells per high-powered field. Perhaps this patient has passed a stone out of the ureter before the exam or perhaps that is a small stone that was not observable. She is okay to be discharged home. I did provide [facility] prescriptions for Toradol, [place], and Zofran. Lab Data Labs: Lab Results 09/27/25 Range/Units 17:15 Urine Color Yellow (Yellow) Urine Appearance Clear (Clear) Urine pH 7.0 (5.0-8.5) Ur Specific [place] 1.010 (1.000-1.030) Urine Protein Negative (Negative) Urine Glucose (UA) Negative (Negative) Urine Ketones Negative (Negative) Urine Blood Trace-intact A (Negative) Urine Nitrite Negative (Negative) Urine Bilirubin Negative (Negative) Urine Urobilinogen 0.2 (0.2-1.0) Ur Leukocyte Esterase Negative (Negative) Urine RBC 2-5 A (0-2) Urine WBC 0-2 (0-5) Ur Squamous Epith Cells Few (None-Few) Urine Bacteria None (None) Imaging Data CT scan - abdomen: Radiologist's impression: Nonobstructing 4.7 millimeter stone right kidney. No left-sided stone. Discharge Plan Discharge Clinical Impression: Calculus, ureteral Patient Disposition: Home, Self-Care Condition: Improved Additional Instructions: Take medications as needed and directed. Follow up with MD return if worsening symptoms occur. Prescriptions: No Action metoprolol tartrate 25 mg tablet 25 mg PO BID Qty: 180 3RF lamotrigine [Lamictal] 100 mg tablet 100 mg PO QDAY Qty: 90 3RF gabapentin 300 mg capsule 600 mg PO 3XD Qty: 360 3RF desvenlafaxine succinate 100 mg tablet extended release 24 hr 100 mg PO QDAY Qty: 90 3RF dextroamphetamine-amphetamine [Adderall XR] 30 mg capsule,extended release 24hr 30 mg PO QAM Qty: 30 0RF semaglutide (weight loss) 2.4 mg/0.75 mL pen injector 2.4 mg subcut Q7D Qty: 3 12RF rizatriptan 10 mg tablet 10 mg PO Q2-4H Qty: 18 1RF Rx Instructions: one tablet by mouth at onset of headache, may repeat every 2 hours as needed, max 30 mg in 24 hours Follow Up/Referrals: Vanessa Barbour MD [Primary Care Provider, Family Practice] Stand Alone Forms: MyHealth Info Instructions
--- OUTSIDE RECORDS SUMMARY | 2025-09-27 17:32 | XMS_ITS | Clinical Summary ---
Author Organization [email or web address] [facility] Address [address] [place] [id number] Care Team Providers Care Embedded Software Manager Name Role Phone Vanessa Barbour MD Primary Care Provider [phone] Allergies Active Allergy Reactions Criticality Noted Date Comments Codeine Rash 02/02/2006 Diatrizoate Allergen Rash 01/31/2006 Patient states had a rash when she had the contrast in her 20s has had the non ionic since and does fine Medications CARISOPRODOL 350 MG TAB 350 mg oral every 6 hours as needed for spasm 40 0 02/04/20 06 Active DULoxetine (CYMBALTA) 60 mg Delayed-release capsule Take 120 mg by mouth once daily. 1 01/08/20 18 Active gabapentin (NEURONTIN) 600 mg tablet TAKE 1.5 TABLETS BY MOUTH 3 TIMES DAILY. INCREASE DOSE DIRECTED 1 01/06/20 18 Active lamoTRIgine (LAMICTAL) 200 mg tablet TAKE 1.5 TABLET BY MOUTH EVERY DAY 1 01/08/20 18 Active metoprolol tartrate (LOPRESSOR) 25 mg tablet Take 25 mg by mouth 2 times daily. 3 01/05/20 18 Active HYDROcodone-acetam inophen, 5-325 mg, (NORCO) per tablet Take 1 tablet by mouth every 4 hours if needed for pain. 10 tablet 0 7:56 PM [employer] 02/25/20 20 Active rizatriptan (MAXALT) 10 mg tablet TAKE 1 TAB BY MOUTH NEEDED AT ONSET OF HEADACHE. MAY REPEAT EVERY 2 HRS IF NEEDED. FLV28AG/24HRS 12/13/19 Active cyclobenzaprine (FLEXERIL) 10 mg tablet Take 10 mg by mouth 3 times daily if needed. 08/13/20 Active dextroamphetamine- amphetamine (ADDERALL XR) 30 mg Extended-Release capsule 12/11/19 Active oxyCODONE (ROXICODONE) 5 mg immediate release tabletIndications: S/P laparoscopic cholecystectomy Take 1 tablet by mouth every 6 hours if needed for Pain 5 tablet 12/26/19 Active acetic acid 0.25% 0.25 % irrigation Moisten 1-2 gauze pads and wring excess. Apply moistened gauze to open wound then cover moist gauze with dry gauze. Change twice a day. 500 mL 1 4 2:34 PM [employer] 10/25/19 24 Active semaglutide (Wegovy) 0.25 mg/0.5 mL subcutaneous pen 0.25 mg (0.5 mL) subcutaneously every week for 4 weeks; administer weeks 1 through 4 of therapy 2 mL 4 11:13 AM CDT 08/19/20 24 Active semaglutide, weight loss, (Wegovy) 0.5 mg/0.5 mL subcutaneous pen Inject 0.5 mg (0.5 mL) subcutaneously every week for 4 weeks; administer weeks 5 through 8 of therapy 2 mL 4 12:41 PM [employer] 09/12/20 24 Active semaglutide, weight loss, (Wegovy) 1 mg/0.5 mL subcutaneous pen Inject 1 mg subcutaneous once weekly. 2 mL 11/19/19 25 Active Immunizations Immunization Administration Dates Next Due Td (Age >=7 Years) 04/28/2003 Social History Tobacco Use Types Packs/Day Years Used Date Smoking Tobacco: Every Day Cigarettes Smokeless Tobacco: Never Comments Unknown Sex and Gender Information Value Date Recorded Sex Assigned at Not on file Legal Sex Female 6:34 AM [employer] Gender Identity Not on file Sexual Orientation Not on file Last Filed Vital Signs Vital Sign Reading Time Taken Comments Blood Pressure 124/87 12/26/2019 8:31 AM [employer] Pulse 78 12/26/2019 8:31 AM [employer] Temperature 36.8 C (98.2 F) 12/26/2019 8:31 AM [employer] Respiratory Rate 16 02/23/2018 2:10 PM CDT Oxygen Saturation 97% 12/26/2019 8:31 AM [employer] Inhaled Oxygen Concentration - - Weight 121.5 kg (267 lb 12.8 oz) 12/26/2019 8:31 AM [employer] Height 175.3 cm (5' 9) 02/23/2018 11:5 1 AM CDT Body Mass Index 39.55 02/23/2018 11:51 AM CDT Plan of Treatment Health Maintenance Due Date Last Done Comments Depression screening for age 12+ 1978 HIV for age 15-65 1981 Hepatitis C screening for age 18-79 1984 Hepatitis B series for 19+ ( 1 of 3 - 19+ 3-dose series) 1985 Pap test for age 21-65 10/08/2010 10/08/2007 Colonoscopy through age 75 2011 Lipids for age 45-75 2011 Mammogram for age 45-75 2011 Tetanus booster 04/28/2013 04/28/2003 Pneumococcal series for age 50+ (1 of 1 - PCV) 016 Zoster (shingles) series for age 50+ (1 of 2) 04/15/20 16 BMI (ht and wt on same day) for age 18+ 01/26/2019 0 01/26/2018 COVID-19 vaccine series (2024- season) Influenza Vaccine (#1) 2025 RSV vaccine for adults or pr egnancy (1 - 1-dose 75+ series) 2041 Procedures Procedure Name Priority Date/Time Associated Diagnosis Comments GYNECOLOGICAL PANEL Timed 10/08/2007 1 0:12 AM [employer] from Last 3 Months or Most Recently Relevant to Health Maintenance Results * GYNECOLOGICAL PANEL (10/08/2007 10:12 AM [employer]) CYTOLOGY CYTOPATHOLOGY REPORT [facility] [employer] Status: Final Report [id number] CLINICAL INFORMATION LMP : 10/03/07 Previous Pap Date : 2004 Previous PAP Dx : WNL Previous [place]/bx date : None Previous Colposcopy/Bx: None Hormone Usage : Not given Appearance of Cervix : Not given [place]/Bx done today : No HPV Request : Reflex HPV test if PAP Dx ASCUS SPECIMEN SOURCE : Cervical/vaginal ThinPrep Vial, screening SPECIMEN ADEQUACY : Satisfactory for evaluation Endocervical component present. INTERPRETATION/RES ULT: Negative for intraepithelial lesion or malignancy. Cytology 1st Screener : latosha Signed by: [email or web address] This specimen was screened by the FDA approved ThinPrep Imaging System and manually reviewed. NOTE: The Pap test is a screening technique, not a diagnostic procedure. It is used primarily to screen for squamous cancers and precursor lesions. Published studies have shown that it is subject to both false negative and false positive results. The pap test should not be used as the sole means to diagnose or exclude pre-malignant and malignant lesions. COLLECTED: 10/08/07 ACCESSIONED: 10/10/07 SIGNED: 10/19/07 [facility] 10/08/2007 10:1 2 AM [employer] 10/10/2007 10:12 AM [employer] january Mallorie ZLEAYA PATHOLOGY/CYTOLOGY Final R esult [facility] INTERNAL ZIP [phone] [address] from Last 3 Months or Most Recently Relevant to Health Maintenance Insurance [employer] OF [employer] Advance Directives * Full Code (Latest Code Status on File) Date Activated Date Inactivated Comments 02/23/2018 1:15 PM 02/23/2018 5:04 PM * Full Code Date Activated Date Inactivated Comments 02/02/2006 9:20 PM 02/04/2006 3:07 PM * Full Code Date Activated Date Inactivated Comments 02/02/2006 7:01 PM 02/02/2006 9:20 PM * Full Code Date Activated Date Inactivated Comments 02/02/2006 3:01 PM 02/02/2006 7:01 PM Care Teams Embedded Software Manager Relationship Specialty Start Date End Date Vanessa Barbour MD [address] [place], [place] [id number] PCP - General Family Practice 01/07/25
--- OUTSIDE RECORDS SUMMARY | 2025-09-27 17:32 | XMS_ITS | Clinical Summary ---
Author Organization [facility] Address [address] [place] [address] Care Team Providers Care Tobacco Scrap Sifter Name Role Phone Manolojanuary Primary Care Provider [phone] Allergies Active Allergy Reactions Criticality Noted Date Comments Codeine Itching Low 03/24/2023 Iodine Itching 07/12/2002 Contrast dye: itching, blotchy, and vomits. [place] Other (See Comments) High 05/20/2014 Drug-induced immune thrombocytopenia-severe Olanzapine Other (See Comments) High 05/20/2014 Drug-induced immune thrombocytopenia- severe Phenobarbital Other (See Comments) High 05/20/2014 Drug-induced immune thrombocytopenia- severe Medications * This document contains information received from the source organization and may not represent a complete record from that organization. ORDER FOR DMEIndications: Right knee pain Equipment being ordered: Elastogel gel knee wrap (or comparable product) 1 Device 0 4 Active lamoTRIgine (LAMICTAL) 200 MG tabletIndicatio ns:Benzodiazepi ne abuse (H) Take 1 tablet (200 mg) by mouth daily 60 tablet 0 4 Active metoprolol (LOPRESSOR) 25 MG tabletIndicatio ns:Benzodiazepi ne abuse (H) Take 1 tablet (25 mg) by mouth 2 times daily 60 tablet 0 4 Active rizatriptan (MAXALT) 10 MG tabletIndicatio ns:Migraine, unspecified, without mention of intractable migraine without mention of status migrainosus Take 1 tablet (10 mg) by mouth at onset of headache 30 tablet 0 4 Active acetaminophen (TYLENOL) 325 MG tabletIndicatio ns:Knee pain, right Take 2 tablets (650 mg) by mouth every 4 hours as needed for mild pain or fever 100 tablet 0 4 Active buPROPion (WELLBUTRIN XL) 150 MG 24 hr tablet Take 150 mg by mouth every morning Active desvenlafaxine succinate (PRISTIQ) 25 MG 24 hr tablet Take 100 mg by mouth daily Active gabapentin (NEURONTIN) 800 MG tablet Take 800 mg by mouth 3 times daily Active ibuprofen (ADVIL/MOTRIN) 800 MG tabletIndicatio ns:JT (stress urinary incontinence, female) Take 1 tablet (800 mg) by mouth every 6 hours as needed for other (mild and/or inflammatory pain) 30 tablet 3 Active ondansetron (ZOFRAN ODT) 4 MG ODT tabIndications: JT (stress urinary incontinence, female) Take 1 tablet (4 mg) by mouth every 8 hours as needed for nausea 4 tablet 3 Active senna-docusate (SENOKOT-S/JOHNIE COLACE) 8.6-50 MG tabletIndicatio ns:JT (stress urinary incontinence, female) Take 1-2 tablets by mouth 2 times daily 30 tablet 3 Active Active Problems Problem Noted Date Diagnosed Date Benzodiazepine dependence 06/22/2015 Chemical dependency 04/30/2014 Popliteal cyst 02/20/2014 Obesity 02/19/2014 Chondromalacia of patella 02/19/2014 Elevated blood pressure reading 02/19/2014 Right knee pain 01/24/2014 Primary localized osteoarthrosis of the knee 06/2014 Swelling of right knee joint 12/29/2013 Elevated blood pressure 11/08/2012 Kidney stone 11/08/2012 Musculoskeletal disorder and symptoms referable to neck 07/28/2003 Overview (07/23/2015): Problem list name updated by automated process. Provider to review Family history of malignant neoplasm of breast 0 04/28/2003 Depressive disorder, not elsewhere classified Personal history of urinary calculi 07/12/2002 Resolved Problems Problem Noted Date Diagnosed Date Resolved Date Chronic pain of both ankles 04/06/2021 08/03/2021 Thrombocytopenia- drug induc ed, phenobarbitol, olanzapine, lithium 05/13/201405/20 Knee pain 01/03/2014 07/03/2014 Immunizations Immunization Administration Dates Next Due TD,PF 7+ (Tenivac) 04/28/2003 Family History Medical History Relation Comments Cerebrovascular Disease Father Depression Maternal Aunt Depression Maternal Grandmother Cancer Mother Breast ca Depression Other 1 Maternal side of family Hypertension Other 2 Paternal side of family Depression Sister 3 Psychotic Disorder Son 2 Austism Diabetes No family hx of Substance Abuse No family hx of Relation Status Comments Brother Alive Migraines Daughter Alive Healthy but in c ounseling. Father Alive Pacemaker, mild CVA Maternal Aunt Maternal Grandfather Maternal Grandmother depression Mother Alive Breast cancer Other 1 Other 2 Paternal Grandfather HTN Paternal Grandmother HTN Sister 1 Alive Depression Sister 2 Alive Healthy Sister 3 Son 1 Alive Autism, lives in [place] at a facility. Son 2 Social History Tobacco Use Types Packs/Day Years Used Date Smoking Tobacco: Every Day Cigarettes Smokeless Tobacco: Never Tobacco Cessation:Ready to Q uit: Not Asked; Counseling Given: Not Answered Alcohol Use Standard Drinks/Week Comments Yes 0 (1 standard drink = 0.6 oz pur e alcohol) occ Adolescent Education Answer Date Record ed Getting School Help Needed Not on file 07/29 Comments No Sex and Gender Information Value Date Recorded Sex Assigned at Female 10/22/2022 2:48 PM GLAZING MACHINE OPERATOR Legal Sex Female 3:44 AM GLAZING MACHINE OPERATOR Gender Identity Female 10/22/2022 2:48 PM GLAZING MACHINE OPERATOR Sexual Orientation Straight 10/22/2022 2: 48 PM GLAZING MACHINE OPERATOR Last Filed Vital Signs Vital Sign Reading Time Taken Comments Blood Pressure 121/67 03/24/2023 9:30 AM CDT Pulse 65 03/24/2023 9:30 AM CDT Temperature 36.3 C (97.3 F) 03/24/2023 8:30 AM CDT Respiratory Rate 16 03/24/2023 8:06 AM CDT Oxygen Saturation 98% 03/24/2023 9:30 AM CDT Inhaled Oxygen Concentration - - Weight 93.4 kg (206 lb) 03/24/2023 6:29 AM CDT Height 170.2 cm (5' 7) 03/24/2023 6:29 AM CDT Body Mass Index 32.26 03/24/2023 6:29 AM CDT Plan of Treatment Health Maintenance Due Date Last Done Comments ADVANCE CARE PLANNING 1966 ANNUAL REVIEW OF HM ORDERS 1966 CT COLONOGRAPHY 1966 FIT 1966 FLEX SIG 1966 sDNA (Cologuard) 1966 COLONOSCOPY 1976 COLORECTAL CANCER SCREENING 1976 HIV SCREENING 1981 HEPATITIS C SCREENING 1984 HEPATITIS A VACCINE (1 of 2 - Risk 2-dose series) 1985 HEPATITIS B VACCINE (1 of 3 - 19+ 3-dose series) 1985 YEARLY PREVENTIVE VISIT 04/28/2004 04/28/2003 PAP 04/28/2006 04/28/2003 LIPID 04/29/2008 04/29/2003 MAMMO SCREENING 12/19/2009 12/19/2007, 11/24, 12/12/2007, Additional history exists LUNG CANCER SCREENING 2016 PNEUMOCOCCAL VACCINE 50+ YEARS (1 of 1 - PCV) 2016 ZOSTER VACCINE (1 of 2) 2016 DIABETES SCREENING 05/15/2017 05/15/2014, 0 05/14/2014, 05/13/2014, Additional history exists DTAP/TDAP/TD VACCINE (2 - Td or Tdap) 05/03/2023 05/03/2013, 04/28/2003, 04/28/2003, Additional history exists PHQ-2 (once per calendar year) 2024 COVID-19 VACCINE ( season) 2025 01/12/2021, 12/15/2020 INFLUENZA VACCINE (#1) 2025 , 07/03/2019, 07/03/2019, Additional history exists HPV VACCINE (No Doses Required) Completed MENINGITIS VACCINE Aged Out No longer eligible based on patient's age to complete this topic Medical Devices Implanted Type Area Infrastructure Administrator Device Identifier Shelf Expiration Date Model / Serial / Lot Sling, Incontinence, Gynecar Tvt Exact Tvtrl - [id number] Implanted:Qty: 1 on 03/24/2023 by Vanessa Richardson DO at [facility] Stent N/A: Vagina [facility] 10/22/2023 TVTRL / / [id number] Stent Ureteral Dbl Pigtail Inlay [id number] Implanted:Qty: 1 on 11/10/2012 by Martin Barksdale MD at [facility] Left: Ureter CR [employer] [id number] / / [id number] Procedures Procedure Name Priority Date/Time Associated Diagnosis Comments BASIC METABOLIC PANEL STAT 05/15/2014 8:06 AM CDT ITP (idiopathic thrombocytopenic purpura) (H) HC MAMMOGRAM, DIAGNOSTIC UNILATERAL Routine 12/19/2007 2:07 PM GLAZING MACHINE OPERATOR HCL LIPID PANEL Routine 04/29/2003 4:22 AM CDT Gynecologic Examination Depressive Disorder Nec Anxiety State Nos ZZCL AFF THIN LAY PAP,DIAG W/HPV REFLEX Routine 04/28/2003 10:57 PM CDT Gynecologic Examination Depressive Disorder Nec Anxiety State Nos from Last 3 Months or Most Recently Relevant to Health Maintenance Results * Basic metabolic panel (05/15/2014 8:06 AM CDT) Sodium 141 133 - 144 mmol/L [facility] Potassium 3.7 3.4 - 5.3 mmol/L [facility] Chloride 107 94 - 109 mmol/L [facility] Carbon Dioxide 27 20 - 32 mmol/L [facility] Anion Gap 6 6 - 17 mmol/L [facility] Glucose 88 60 - 99 mg/dL [facility] Urea Nitrogen 9 5 - 24 mg/dL [facility] Creatinine 0.80 0.52 - 1.04 mg/dL [facility] GFR Estimate 77 >60 mL/min/1.7 m2 [facility] GFR Estimate If Black >90 >60 mL/min/1.7 m2 [facility] Calcium 8.5 8.5 - 10.4 mg/dL [facility] Blood specimen (specimen) 05/15/2014 8:06 AM CDT 05/15/2014 8:07 AM CDT us [facility] - BLOOD ORDERABLES Final Result [address] [address] * MAMMOGRAPHY; UNILATERAL (12/19/2007 2:07 PM GLAZING MACHINE OPERATOR) Anatomical Region Laterality Modality Other 12/19/2007 2:07 PM GLAZING MACHINE OPERATOR Impressions 12/28/2007 9:14 AM GLAZING MACHINE OPERATOR Addendum Begins ADDENDUM: The pathology diagnosis for the right breast nodule is a fibroadenoma. This is concordant with the imaging findings. The pathology diagnosis for the left breast biopsy is proliferative fibrocystic change with sclerosing adenosis and cyst formation. There is no evidence of atypia or malignancy. The benign pathology is concordant with the imaging findings. A six-month followup breast MRI and a 6 month followup diagnostic mammogram are recommended. Dictated on: ; {CR} 12/21/2007 9:46:04AM ; {CR} Interpreted by: ; {CR} RONI GILLESPIE ; {CR} Transcribed by: ; {CR} PowerScribe ; {CR} Addendum Ends ULTRASOUND CORE BIOPSY, BOTH BREASTS; CLIP PLACEMENT; POSTBIOPSY MAMMOGRAM - 12/19/2007 HISTORY: Indeterminate nodules in both breasts. PROCEDURE: Following discussion of risks and benefits, consent was obtained from the patient. The left breast was prepped and draped in the usual sterile fashion. 1% lidocaine without and with epinephrine was infiltrated for local anesthetic and a skin lj was made through which a 13-gauge trocar was introduced and its tip was placed adjacent to the cystic area in the left breast at the 7:00 position, 7 cm from the nipple. A series of three samples were obtained with a 14-gauge vacuum assisted biopsy needle. A metal tissue marker was then deployed to skye the lesion. Next, the right breast was prepped and draped in the usual sterile fashion. 1% lidocaine without epinephrine was infiltrated for local anesthesia. A skin lj was made and a 13-gauge introducer was advanced and placed adjacent to the nodule at the 6:00 position of the retroareolar right breast. A series of four samples was obtained using a 14-gauge core cutting needle. A metal tissue marker was deployed in the biopsy site. The post biopsy mammogram showed satisfactory positioning of both tissue markers. She tolerated the procedure without difficulty and there was no immediate complication. us January Fitzloff MAMMOGRAPHY Edited * A.M.A. LIPID PANEL (04/29/2003 4:22 AM CDT) Comments DNR [facility] Triglycerides 123 <150 MG/DL [facility] Cholesterol 193 <200 MG/DL [facility] Cholesterol Percentile 54 PERCENTILE [facility] HDL Cholesterol 47 >39 MG/DL [facility] LDL Cholesterol Calculated 121 <130 MG/DL [facility] Comment: LDL CHOLESTEROL (MG/DL) GOALS AND CUTPOINTS FOR THERAPEUTIC LIFESTYLE CHANGES (TLC) AND DRUG THERAPY IN DIFFERENT RISK CATEGORIES (AFTER EXCLUSION OR, IF APPROPRIATE, TREATMENT OF SECONDARY CAUSES OF LDL ELEVATION). FROM NCEP ATP-III REPORT, FEBRUARY 2001. RISK CATEGORY LDL GOAL LDL TO LDL TO CONSIDER INITIATE TLC DRUG THERAPY - CHD OR CHD >129 EQUIVALENTS: (100-129: 10 YR RISK >20% <100 >99 DRUG OPTIONAL) 2+ RISK FACTORS: 10 YR RISK 10-20% <130 >129 >129 - 2+ RISK FACTORS: 10 YR RISK <10% <130 >129 >159 - 0-1 RISK FACTORS: <160 >159 >189 (160-189: DRUG OPTIONAL) Cholesterol/HDL Ratio 4.1 <4.4 [facility] 04/28/2003 Giselle Dyson MD LABORATORY Final Result [facility] * THIN LAY PAP,DIAG W/HPV REFLEX (04/28/2003 10:57 PM CDT) Unlabelled DNR [facility] Source DNR [facility] LMP 04/12/03 [facility] Clinical History DNR [facility] Therapy DNR [facility] Last Pap Diagnosis WNL Q UEST BRADY PAP Date DNR [facility] Prev Bx Dx DNR [facility] Prev Bx Date R [facility] of Adequacy [facility] Comment: SATISFACTORY FOR EVALUATION ENDOCERVICAL/TRANSFORMATION ZONE COMPONENT PRESENT General Categorization DNR [facility] Descriptive Diagnosis [facility] Comment: NEGATIVE FOR INTRAEPITHELIAL LESION OR MALIGNANCY ORGANISMS: FUNGAL ORGANISMS MORPHOLOGICALLY CONSISTENT WITH MAIKOL SPECIES BASED ON THIN PREP PAP TEST RESULT, HPV REFLEX TEST NOT PERFORMED. Recommendations [facility] . [facility] Comment: PAP SMEARS ARE SUBJECT TO BOTH FALSE NEGATIVE AND FALSE POSITIVE RESULTS EVIDENCED BY DATA PUBLISHED IN THE MEDICAL LITERATURE. YOUR PATIENT'S RESULT SHOULD BE INTERPRETED IN THIS CONTEXT, TOGETHER WITH THE PATIENT'S HISTORY AND CLINICAL FINDINGS. THIS TEST WAS PERFORMED AT [employer] [address] [facility], [address] [place] [address] PHONE NUMBERS FOR CYTOLOGY INQUIRIES, INCLUDING SLIDE REQUESTS: 04/28/2003 us Giselle Dyson MD LABORATORY Final Result [facility] from Last 3 Months or Most Recently Relevant to Health Maintenance Insurance BCBS OUT OF STATE OTHER [facility] MVA PROGRESSIVE Advance Directives For more information, please contact: [phone] * Full Code (Latest Code Status on File) Date Activated Date Inactivated Comments 05/15/2014 9:41 AM * Full Code Date Activated Date Inactivated Comments 05/13/2014 10:14 PM 05/15/2014 9:41 AM * Full Code Date Activated Date Inactivated Comments 04/30/2014 5:47 PM 05/11/2014 4:26 PM * Full Code Date Activated Date Inactivated Comments 11/08/2012 7:18 PM 11/10/2012 5:23 PM Care Teams Tobacco Scrap Sifter Relationship Specialty Start Date End Date January PCP - General Physician Residential Real Estate Sales Manager 04/30/14
--- OUTSIDE RECORDS SUMMARY | 2025-09-27 17:32 | XMS_ITS | Data Portability ---
Author Organization [employer] AUTOMATIC GRINDER OPERATOR, [id number] Address [address] [place] [address] Care Team Providers Care Hourly Manager Name Role Phone ORQUIDEA JOSEPH Primary Care Provider Assessment Encounter Date Assessment [...] patient and/or caregiver regarding health maintenance recommendations [email or web address] Not available 03/08/2023 11:15:51 Plan of Treatment Reminders Order Date Submit Date Provider Last Modified By Organization Details Last Modified Time Details Appointments None recorded. Lab None recorded. Referral None recorded. Procedures None recorded. Surgeries tension-f ree vaginal tape (SURG) 023 023 [facility], [address] [place], [address], 3 09:31:10 Imaging None recorded. Medication Orders None recorded. Patient TargetsNo targets recorded. Patient Instructions Encounter Date Encounter Id Patient Instructions Last Modified By Organization Details Last Modified Time 03/08/2023 [id number] Documentation assistance provided by jamel Ward for Dr. Orquidea Richardson DO. The patient and family/friends if present were apprised of the use of a scribe through remote audio and all parties consented to conducting the visit in this manner. [email or web address] Not available 03/08/2023 11:04:14 Reason for Referral None Reported. Problems Name Problem SNOMED Code Status Onset Date Resolution Date Notes Provider Name and Address Organization Details Recorded Time Achilles tendinitis 28531629 Active Faraz Riser (TERMED) null, [facility] 3 16:22:44 Eating disorder 67485141 Active Faraz Riser (TERMED) null, [facility] 3 16:22:53 Plantar fasciitis 025489916 Active Faraz Riser (TERMED) null, [facility] 3 16:23:05 Prepatellar bursitis 84880673 Active Faraz Riser (TERMED) null, [facility] 3 16:23:18 Migraine 76898013 Active PaNhiag Erickson null, [facility] 3 10:58:49 Urinary incontinence 891870554 Active PaNhiag Erickson null, [facility] 3 11:08:37 Problem Notes None recorded. Procedures Surgical History Date Name Laterality Status Provider Name and Address Organization Details Recorded Time 03/24/20 23 [facility] free [facility] 09:29:24 01/22/20 23 Date of Last [facility] 10:48:00 10/23/19 21 Date of Last [facility] 10:47:06 11/23/19 20 Laparoscopic cholecystectomy completed Keyana Erickson [facility] 03/08/2023 10:51:37 10/23/19 16 Date of Last [facility] 10:48:23 10/23/19 13 lumpectomy of right breast [facility]2023 10:51:05 10/23/19 13 lithotripsy completed Keyana Erickson [facility] 03/08/2023 11:00:48 10/23/19 09 procedure on eye completed Keyana Erickson [facility] 03/08/2023 10:53:19 10/23/19 05 operation on spinal cord completed Keyana Erickson [facility] 03/08/2023 10:51:15 10/23/19 00 delivery completed Keyana Erickson [facility] 03/08/2023 10:50:30 10/23/19 00 Tubal L[facility] 10:52:16 10/23/18 94 [facility] 10:50:24 Imaging Results None recorded. Procedure Notes None recorded. Medical Equipment None Reported. Allergies Allergen ID Allergen Name Allergen Category Reaction Reaction Severity Criticality Documentation Date Start Date Code Code System Note Provider Name and Address Organization Details Recorded Time 586562 lithium Not available Not available Not available Not available 03/02/2023 6448 RxNorm drug induc ed immun e throm bocyt openi a Faraz Riser (TERMED) null, [facility] 3 16:17:29 050639 olanzapin e medicatio n Not available Not available Not available 03/02/2023 68081 RxNorm drug induc ed immun e throm bocyt openi a Faraz Riser (TERMED) null, [facility] 3 16:17:35 729028 phenobarb ital medicatio n Not available Not available Not available 03/02/2023 8134 RxNorm drug induc ed immun e throm bocyt openi a Faraz Riser (TERMED) null, [facility] 3 16:17:44 165992 codeine medicatio n rash Not available Not available 03/02/2023 2670 RxNorm Faraz Riser (TERMED) null, [facility] 3 16:17:53 Medications Name Sig Start Date [...] Body mass index (BMI) Body height Systolic And Diastolic Provider Name and Address Organization Details Last Updated DateTime 03/08/2023 43378.62 g 32.4 kg/m2 170.18 cm 124/72 mm[Hg] [facility] OPER[facility] 03/08/2023 10:44:38 Date Recorded Body height Body mass index (BMI) Body weight Systolic And Diastolic Provider Name and Address Organization Details Last Updated DateTime 04/03/2023 170.18 cm 32.9 kg/m2 12642.4 g 132/80 mm[Hg] Keyana COBIAN AUTOMATIC GRINDER OPERATOR 04/03/2023 11:40:06 Social History Question Answer Notes LastModified by Organizat ion Details LastModified Time Tobacco Smoking Status Current Every Day Smoker [facility] [place] AUTOMATIC GRINDER OPERATOR 03/08/2023 11:06:23 Do You Have An Advance Directive? No Information not available 03/08/2023 What Is Your Level Of Caffeine Consumption? None Drinks Gi Dry Gingerale Daily (caffeine Free) Information not available 03/08/2023 History Of Domestic Violence No Information not available 03/08/2023 Spouse/Partners Name Jacob Meza Information not available 03/08/2023 What Is Your Relationship Status? Information not available 03/08/2023 Are You Sexually Active? Yes Information not available 03/08/2023 Sex: Unknown Functional Status Question Answer Note LastModified by Organizat ion Details LastModified Time Do you use any illicit or recreational drugs? No Information not available 03/08/2023 What is your level of alcohol consumption? None Information not available 03/08/2023 Are you currently employed? 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 None Information not available 03/08/2023 Mental Status None recorded. Family History Relationship Description Onset Age of this Age Resolved Age Notes LastModified by Organization Details LastModified Time Mother Malignant neoplasm of breast 50 [email or web address] Not available 2022 [...] Not available 2022 10:59:12 Paternal Grandfather Malignant neoplasm of lung Not available 2022 10:59:44 Paternal [...] Diagnosis/Indication Diagnosis SNOMED-CT Code Diagnosis ICD10 Code Diagnosis IMO Codes Diagnosis Note [id number] Orquidea Richardson DO [id number] JOSE MARTINEZ Y [address] [address] [place] [address] 03/08/2023 10:25:22 03/08/2023 13:57:42 Female urinary stress incontinence 41819785 N39.3 - Discussed TVT procedure for treatment. Process along with risks/bene fits explained to pt. Pt desires to move forward with this procedure. [id number] Orquidea Richardson DO [id number] JOSE MARTINEZ Y [address] [place] [address] 04/03/2023 11:23:04 04/03/2023 15:54:26 Postoperative visit [id number] Z09 Health Concerns Section Related Observation LastModified by Organization Detai ls LastModified Time None Recorded Concern Status LastModified by Organization Details LastModified Time None Recorded Advance Directives Directive N: Payers Insurance Date Sequence Insurance Name Policy Number Policy Deng Covered Member ID Deng Member ID Guarantor Name 03/08/[address] [facility] [place] [id number] [place] 04/06/2023 1 [place] [id number] Jacob Susana [id number] Nettie Susana Notes Date Note Type Note Provider Name and Address Organization Details Recorded Time 3 text/html Urinary Incontinence ([facility])Reported by PatientHPIFor *location, patient reportsleakage of urine through urethra. For *quality, patient reportsleakage of urine with exertion. For *context, patient reportspostmenopausal. For *associated signs & symptoms, patient reportsno dysuriaandno pelvic pain. For *modifying factors, patient reportsworse with physical exertion,worse with coughing,worse with sneezing, andworse with laughing. For referred by, (lilly joseph).- Loses urine with lifting and coughing and sneezing.ROS as [place] [address], [place], [address], [place] - [facility] AUTOMATIC GRINDER OPERATOR 03/08/2023 11:16:12 3 text/html Surgery Date: 03/24/2023.Patient presents for her first post-operative evaluation.Surgical procedure: Tension-free TVT placement with Cystoscopy.Indication: USI.Pathology findings: none.The procedure was done by: Myself.She has no unusual complaints.I was called out for delivery, so postoperative visit [place] [address], [place], [address], [facility] - [facility] AUTOMATIC GRINDER OPERATOR 04/03/2023 14:37:30 OBGyn Episode No OBEpisode recorded.
[2025-09-27] MEDS: ONDANSETRON 2 MG/ML inj 4 MG IVP (17:36)
[2025-09-27 18:10] LABS: Appearance Urine Clear (Clear)
[2025-09-27 18:35] VITALS: BP 122/76; PULSE 64; RESP 16; O2SAT 96
== END 2025-09-27 18:42 | disposition home or self-care (01) ==
PROVIDERS: Emergency Provider Emergency Medicine Emergency Medical Services; PCP Family Medicine
DX: N20.1 Calculus of ureter (principal); F17.210 Nicotine dependence, cigarettes, uncomplicated; Z87.442 Personal history of urinary calculi
CPT/HCPCS: 74176; 81001; 96374; 96375; 99284; 99285; J1171; J1885; J2405

== ENCOUNTER 2025-10-01 15:13 | Emergency (ER) | payer BC, SELFPAY ==
[2025-10-01] VITALS (7 sets, daily range): BP systolic 141–166; BP diastolic 94–95; PULSE 63–81; RESP 18; TEMP 36.5; O2SAT 96–98
--- NOTE | 2025-10-01 15:25 | CRLHL7_ITS ---
For Patients: As a result of the Century Cures Act, medical imaging exams and procedure reports are released immediately into your electronic medical record. You may view this report before your referring provider. If you have questions, please contact your health care provider. INDICATION: Left flank pain TECHNIQUE: CT abdomen and pelvis without contrast. COMPARISON: CT abdomen and pelvis without contrast 09/27/2025. FINDINGS: Lower chest: Unremarkable. Liver: Unremarkable. Gallbladder and bile ducts: Status post cholecystectomy. No abnormal biliary ductal dilation. Pancreas: Unremarkable. Spleen: Unremarkable. Adrenal glands: Normal in size. No nodules. Kidneys: No hydroureteronephrosis. Unchanged calcification within the upper pole of the right kidney. No left renal or ureteral calculi. GI tract: No evidence of bowel obstruction or inflammation. Normal appendix. Moderate stool burden. Vasculature: Abdominal aorta is normal in caliber. Lymph nodes: No lymphadenopathy. Peritoneum/Abdominal Wall: No free air or significant free fluid. Pelvis: Partially distended urinary bladder with mild wall thickening. No pelvic masses. Bones: No acute or suspicious osseous abnormality. Degenerative changes of the imaged spine greatest at L4-L5 and L5-S1. The bones appear demineralized. IMPRESSION: No acute findings identified within the abdomen or pelvis. No hydronephrosis. Please note that all CT scans at this facility use dose modulation, iterative reconstruction, and/or weight-based dosing when appropriate to reduce radiation dose to as low as reasonably achievable. Dictated by Paula Sotelo MD @ 10/01/2025 4:06:10 PM (Electronically Signed)
--- NOTE | 2025-10-01 15:31 | ED_ITS ---
HPI - General Adult General Chief complaint: Flank Pain Stated complaint: kidney stone Time Seen by Provider: 10/01/25 15:22 History of Present Illness HPI narrative: [age] year white female with a history of multiple kidney stones. She recently had a 4.7 nonobstructing stone on the right but had left flank pain and was here about 4 days ago was thought maybe she passed a stone. She now has sudden increase in pain over the last day in her left low flank, radiates a little bit to her lateral abdomen. She has a history of a looks like from a chart of cyclic vomiting syndrome, some mental health issues, depression ADHD anxiety, and the recurrent kidney stones as mention. She reports this feels very similar to her prior kidney stones. Last time she was here she got Dilaudid and some fluids and got better pain has recurred and she is again bothered on the left side. No abdominal pain no ripping abdominal pain sensation no chest pain or breathing problem. Related Data Previous Rx's ?Medication ?Instructions ?Recorded desvenlafaxine succinate 100 mg 100 mg PO QDAY #90 tab s 02/06/25 tablet,extended release 24 hr gabapentin 300 mg capsule 600 mg (2 x 300 mg) PO 3XD # 360 02/06/25 caps lamotrigine 100 mg tablet 100 mg PO QDAY #90 tabs 01/21 05/16 (Lamictal) metoprolol tartrate 25 mg tablet 25 mg PO BID #180 tab s 02/06/25 semaglutide (weight loss) 2.4 2.4 mg (0.75 mL) subcut Q7D #3 mL 04/21/25 mg/0.75 mL subcutaneous pen injector dextroamphetamine-amphetamine ER 30 mg PO QAM #30 caps 08/28/25 30 mg 24hr capsule,extend release (Adderall XR) rizatriptan 10 mg tablet 10 mg PO Q2-4H #18 tabs 08/23 05/16 hydrocodone 7.5 mg-acetaminophen 1 tab PO Q6-8H PRN pa in #14 tabs 10/01/25 325 mg tablet methylprednisolone 4 mg tablets in See Rx Instructions PO .COMPLEX 10/01/25 a dose pack (Medrol (Matteo)) #21 ea Allergies Allergy/AdvReac Type Severity Reaction Status Date / Time lithium Allergy 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 phenobarbital Allergy 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 codeine Allergy Mild Rash Verified 10/01/25 15:21 Review of Systems Status of ROS: Reports: 10 or more systems reviewed and unremarkable except as noted in History and below [facility] Medical History Syncope ?R55 - Syncope and collapse (ICD-10) Reactive gastropathy ?K31.89 - Other diseases of stomach and duodenum (ICD-10) Acute meniscal tear of knee ?S83.209A - Unspecified tear of unspecified meniscus, current injury, unspecified knee, initial encounter (ICD-10) Thrombocytopenia ?D69.6 - Thrombocytopenia, unspecified (ICD-10) Eating disorder (05/03/13) ?F50.9 - Eating disorder, unspecified (ICD-10) Calculus of kidney (05/03/13) ?N20.0 - Calculus of kidney (ICD-10) Plantar fasciitis, bilateral ?M72.2 - Plantar fascial fibromatosis (ICD-10) Achilles tendinitis ?M76.60 - Achilles tendinitis, unspecified leg (ICD-10) Surgical History History of spinal surgery (05/03/13) ?Z98.890 - Other specified postprocedural states (ICD-10) History of laparoscopic cholecystectomy ?Z90.49 - Acquired absence of other specified parts of digestive tract (ICD- 10) History of section (05/03/13) ?Z98.891 - History of uterine scar from previous surgery (ICD-10) Family History Mother Breast cancer, Onset Age: 50 Osteoporosis Father Stroke Coronary artery disease High blood pressure Hyperlipidemia Sister Crohn disease Xiong syndrome Paternal Grandfather Hyperlipidemia Paternal Grandmother Hyperlipidemia Maternal Grandmother Osteoporosis Thyroid disease Social History Narrative: consumes alcohol occasionally does not use illicit drugs smoker- 1 ppd for many years What is your current living situation?: I presently have a place to live Problems where you live: no known problems In the past 12 months, utilities in danger of being shut off: no In past 12 months, lack of transportation kept you from medical appts, meetings, work, or getting things needed for daily living: no In the past 12 mos, have been you worried that your food would run out before you had money to buy more?: never true In the past 12 mos, the food you bought just didn't last and you didn't have money to buy more?: never true Smoking Status: Current every day smoker Second hand tobacco smoke exposure: No How often do you have a drink containing alcohol: 2-4 times a month AUDIT-C Alcohol total score: 2 Non-prescribed substance use: denies use How often does anyone, including family, friends and others, physically hurt you : never How often does anyone, including family, friends and others, insult or talk down to you: sometimes How often does anyone, including family, friends and others, threaten you with harm: never How often does anyone, including family, friends and others, scream or curse at you: never service: No Health Related Social Needs: Other personal risk factors, not elsewhere classified (Z91.89) Exam Narrative: Exam Narrative: Objective: Patient is alert orient x3 in marked distress secondary to discomfort writhing Vital signs look unremarkable blood pressure 166/95 however Alert orient x3 Abdomen benign soft pulse regular negative flank pain on the left. Nonpalpable pain. Extremities are no edema neurologic nonfocal Const: Vital Signs, click to edit/add: Vital Signs - 24 hr 10/01/25 15:18 Temperature 97.7 F Pulse Rate [Pulse Oximeter] 81 Respiratory Rate 18 Blood Pressure [Ri ght Upper Arm] 166/95 H Pulse Oximetry 97 Oxygen Delivery Me thod Room Air Course Vital Signs Vital signs: Initial Vital Signs Temperature 97.7 F 10/01/25 15:18 Temperature Source Temporal Artery Scan 10/01/25 15:18 Pulse Rate 81 10/01/25 15:18 Respiratory Rate 18 10/01/25 15:18 Blood Pressure 166/95 H 10/01/25 15:18 Blood Pressure Mean 118 H 10/01/25 15:18 Blood Pressure Position Sitting 10/01/25 15:18 Pulse Oximetry 97 10/01/25 15:18 Oxygen Delivery Method Room Air 10/01/25 15:18 Vital Signs Temperature 97.7 F 10/01/25 15:18 Pulse Rate 81 10/01/25 15:18 Respiratory Rate 18 10/01/25 15:18 Blood Pressure 166/95 H 10/01/25 15:18 Pulse Oximetry 97 10/01/25 15:18 Oxygen Delivery Method Room Air 10/01/25 15:18 Temperature 97.7 F 10/01/25 15:18 Pulse Rate 68 10/01/25 16:31 Respiratory Rate 18 10/01/25 15:18 Blood Pressure 141/94 H 10/01/25 16:31 Pulse Oximetry 97 10/01/25 16:31 Oxygen Delivery Method Room Air 10/01/25 16:31 Medications Administered Medications: Discontinued Medications Generic Name Dose Route Start Last Admin Trade Name Freq PRN Reason Stop Dose Admin Sodium Chloride 1,000 mls @ 6,000 mls/hr 10/01/25 15:30 10/01/25 16:37 0.9 % Sodium Chloride 1000 Ml IV 10/01/25 15:39 Infused .Q10M GEOVANNI Infusion Ketorolac Tromethamine 30 mg 10/01/25 15:25 10/01/25 15:39 Ketorolac 30 Mg/Ml Inj IVP 10/01/25 15:26 30 mg ONCE ONE Administration Methylprednisolone Sodium Succinate 125 mg 10/01/25 16:23 10/01/25 16:26 Methylprednisolone Sod Succ 62.5 Mg/Ml (125) IVP 10/01/25 16:24 125 mg ONCE ONE Administration Morphine Sulfate 4 mg 10/01/25 15:25 10/01/25 15:39 Morphine 4 Mg/Ml Inj IVP 10/01/25 15:26 4 mg ONCE ONE Administration Medical Decision Making [facility] Narrative Medical decision making narrative: 60-year-old female with history of multiple kidney stones with recent CT scan about 4 days ago showing a nonobstructive right-sided stone, there was none noted on the left. Patient now has symptoms of a left-sided kidney stone again. Will recheck a CT scan without contrast, IV fluid, IV Toradol and morphine c heck laboratory studies, check urinalysis. Disposition pending findings. Symptoms present very similar to urolithiasis, cannot rule out other intra- abdominal pathology but a CT should be helpful in determining that, as well as laboratory studies will be ordered. Addendum 4:18 p.m.: The patient's CT scan looks unremarkable, her urinalysis is pending this be called back to her as needed, her lab studies look reassuring. She feels somewhat better with the pain medication. I suspect she could also have a little nerve root inflammation in her back a give her some of this discomfort and will give her a Medrol Dosepak as well as some [place] for home her CRP is negative labs look reassuring as mention. Recheck with primary care in the next 2-3 days. Recommend light activity. Lab Data Labs: Lab Results 10/01/25 Range/Units 15:30 WBC 5.31 (4.50-11.00) K/uL RBC 4.54 (4.00-5.20) m/uL Hgb 13.4 (12.0-16.0) gm/dL Hct 40.9 (33.0-51.0) % MCV 90 (80-100) fL MCH 30 (26-34) pg MCHC 33 (32-36) gm/dL RDW Coeff of [place] 12.8 (11.5-15.5) % Plt Count 247 (140-440) K/uL Neut % (Auto) 37.5 L (42.0-72.0) % Lymph % (Auto) 51.4 H (20-44) % [place] % (Auto) 8.1 (0.0-11.0) % Eos % (Auto) 2.4 (0.0-7.0) % Baso % (Auto) 0.4 (0.0-3.0) % Neut # (Auto) 2.00 (1.7-7.0) K/uL Lymph # (Auto) 2.70 (0.90-2.90) K/uL [place] # (Auto) 0.40 (0.00-0.90) K/UL Eos # (Auto) 0.13 (0.00-0.50) K/uL Baso # (Auto) 0.02 (0.00-0.30) K/uL Abs Immat Gran (auto) 0.01 (0.00-0.30) K/uL Imm/Tot Granulo (auto) 0.2 % Sodium 139 (135-149) mmol/L Potassium 4.6 (3.6-5.1) mmol/L Chloride 102 (96-114) mmol/L Carbon Dioxide 28 (20-32) mmol/L Anion Gap 9 (7-15) mEq/L BUN 11 (7-30) mg/dL Creatinine 0.8 (0.5-1.5) mg/dL Estimated GFR 85 ml/min Glucose 98 (60-115) mg/dL Lactate 1.6 (0.5-1.9) mmol/L Calcium 9.2 (8.4-10.6) mg/dL Total Bilirubin 0.5 (0.1-1.5) mg/dL Direct Bilirubin 0.2 (0.0-0.5) mg/dL AST 32 (12-35) U/L ALT 33 (4-35) U/L Alkaline Phosphatase 80 (40-150) U/L C-Reactive Protein < 0.5 L (0.5-1.0) mg/dL Total Protein 6.9 (6.0-8.3) g/dL Albumin 4.2 (3.3-5.0) g/dL Discharge Plan Discharge Clinical Impression: Acute left flank pain Patient Disposition: Home w/ Parent or Adult Condition: Stable Additional Instructions: Light activity, Medrol Dosepak, [place] as needed, may use ibuprofen as well. Recommend follow-up with primary care in the next 2-3 days. Activity Level: Light activity Discharge Diet: Regular Prescriptions: New methylprednisolone [Medrol (Matteo)] 4 mg tablets,dose pack See Rx Instructions .ROUTE .COMPLEX Qty: 21 0RF Rx Instructions: orally per package directions hydrocodone-acetaminophen 7.5-325 mg tablet 1 tab PO Q6-8H PRN (Reason: pain) Qty: 14 0RF No Action metoprolol tartrate 25 mg tablet 25 mg PO BID Qty: 180 3RF lamotrigine [Lamictal] 100 mg tablet 100 mg PO QDAY Qty: 90 3RF gabapentin 300 mg capsule 600 mg PO 3XD Qty: 360 3RF desvenlafaxine succinate 100 mg tablet extended release 24 hr 100 mg PO QDAY Qty: 90 3RF dextroamphetamine-amphetamine [Adderall XR] 30 mg capsule,extended release 24hr 30 mg PO QAM Qty: 30 0RF semaglutide (weight loss) 2.4 mg/0.75 mL pen injector 2.4 mg subcut Q7D Qty: 3 12RF rizatriptan 10 mg tablet 10 mg PO Q2-4H Qty: 18 1RF Rx Instructions: one tablet by mouth at onset of headache, may repeat every 2 hours as needed, max 30 mg in 24 hours Follow Up/Referrals: Vanessa Barbour MD [Primary Care Provider, Family Practice] Stand Alone Forms: [facility] [employer] Info Instructions
[2025-10-01] MEDS: MORPHINE 4 MG/ML INJ IVP (15:39)
[2025-10-01 15:41] LABS: Lactate* 1.6 mmol/L (0.5-1.9)
[2025-10-01 15:42] LABS: Hematocrit* 40.9 % (33.0-51.0); Hemoglobin* 13.4 gm/dL (12.0-16.0); Immature Granulocytes Abs Auto 0.01 K/uL (0.00-0.30); Immature Granulocytes Pct Auto 0.2 %; Mean Corpuscular HGB Conc 33 gm/dL (32-36); Mean Corpuscular Hemoglobin 30 pg (26-34); Mean Corpuscular Volume 90 fL (80-100); RDW Coefficient of Variation % 12.8 % (11.5-15.5); Red Blood Count* 4.54 m/uL (4.00-5.20); White Blood Count* 5.31 K/uL (4.50-11.00)
[2025-10-01 15:48] LABS: Lymphocytes Absolute Auto 2.70 K/uL (0.90-2.90)
[2025-10-01 15:49] LABS: Slide Review Reflex No
[2025-10-01 15:56] LABS: Albumin* 4.2 g/dL (3.3-5.0); Chloride* 102 mmol/L (96-114); Potassium* 4.6 mmol/L (3.6-5.1); Sodium* 139 mmol/L (135-149)
[2025-10-01 15:59] LABS: Alanine Aminotransferase* 33 U/L (4-35); Alkaline Phosphatase* 80 U/L (40-150); Anion Gap 9 mEq/L (7-15); Aspartate Amino Transferase* 32 U/L (12-35); Bilirubin Direct* 0.2 mg/dL (0.0-0.5); Bilirubin Total* 0.5 mg/dL (0.1-1.5); Blood Urea Nitrogen* 11 mg/dL (7-30); Carbon Dioxide* 28 mmol/L (20-32); Creatinine* 0.8 mg/dL (0.5-1.5); Estimated Glomerular Filt Rate 85 ml/min; Total Protein* 6.9 g/dL (6.0-8.3)
[2025-10-01 16:00] LABS: Calcium* 9.2 mg/dL (8.4-10.6); Glucose* 98 mg/dL (60-115)
[2025-10-01] MEDS: METHYLPREDNISOLONE SOD SUCC 62.5 MG/ML (125) 125 MG IVP (16:26)
--- OUTSIDE RECORDS SUMMARY | 2025-10-01 16:36 | XMS_ITS | Clinical Summary ---
Author Organization [facility] Address [address] [place] [address] Care Team Providers Care Sequins Stringer Name Role Phone Manolojanuary Primary Care Provider [phone] Allergies Active AllergyReactionsCriticalityNoted EolvTnpuguhnOagdcawKtyserqHdu02/02/2023 LcvlzlHjvjpjd96/20/2002 Contrast dye: itching, blotchy, and vomits. LithiumOther (See Comments)High05/20/2014 Drug-induced immune thrombocytopenia-severe OlanzapineOther (See Comments)High05/20/2014 Drug-induced immune thrombocytopenia- severe PhenobarbitalOther (See Comments)High05/20/2014 Drug-induced immune thrombocytopenia- severe Medications * This document contains information received from the source organization and may not represent a complete record from that organization. MedicationSigDispense QuantityRefillsLast FilledStart DateEnd DateStatus ORDER FOR DME Indications:Right knee painEquipment being ordered: Elastogel gel knee wrap (or comparable product) 1 Device ctive lamoTRIgine (LAMICTAL) 200 MG tablet Indications:Benzodiazepine abuse (H)Take 1 tablet (200 mg) by mouth daily 60 tablet ctive metoprolol (LOPRESSOR) 25 MG tablet Indications:Benzodiazepine abuse (H)Take 1 tablet (25 mg) by mouth 2 times daily 60 tablet ctive rizatriptan (MAXALT) 10 MG tablet Indications:Migraine, unspecified, without mention of intractable migraine without mention of status migrainosusTake 1 tablet (10 mg) by mouth at onset of headache 30 tablet ctive acetaminophen (TYLENOL) 325 MG tablet Indications:Knee pain, rightTake 2 tablets (650 mg) by mouth every 4 hours as needed for mild pain or fever 100 tablet ctive buPROPion (WELLBUTRIN XL) 150 MG 24 hr tablet Take 150 mg by mouth every morningActive desvenlafaxine succinate (PRISTIQ) 25 MG 24 hr tablet Take 100 mg by mouth dailyActive gabapentin (NEURONTIN) 800 MG tablet Take 800 mg by mouth 3 times dailyActive ibuprofen (ADVIL/MOTRIN) 800 MG tablet Indications:JT (stress urinary incontinence, female)Take 1 tablet (800 mg) by mouth every 6 hours as needed for other (mild and/or inflammatory pain) 30 tablet 03/24/2023ctive ondansetron (ZOFRAN ODT) 4 MG ODT tab Indications:JT (stress urinary incontinence, female)Take 1 tablet (4 mg) by mouth every 8 hours as needed for nausea 4 tablet 03/24/2023ctive senna-docusate (SENOKOT-S/PERICOLACE) 8.6-50 MG tablet Indications:JT (stress urinary incontinence, female)Take 1-2 tablets by mouth 2 times daily 30 tablet 03/24/2023ctive Active Problems ProblemNoted DateDiagnosed DateBenzodiazepine gpkfwbnelp56/31/2015Chemical gkhioabtqq71/09/2014Popliteal cyst02/20/20141300Aosxqfz75/30/2014Chondromalacia of cysvdcm5402/19/2014Elevated blood pressure kgoimey9002/19/2014Right knee pain 01/24/2014Primary localized osteoarthrosis of the knee12/29/2013Swelling of right knee joint12/29/2013Elevated blood kqrpezoz33/17/2013Kidney stone 11/08/2012Musculoskeletal disorder and symptoms referable to neck07/28/2003 Overview (07/23/2015): Problem list name updated by automated process. Provider to review Family history of malignant neoplasm of bdwlow5704/28/2003Depressive disorder, not elsewhere yqouuwjpnk08/20/2002Personal history of urinary zsbxmnk8507/12/2002 Resolved Problems ProblemNoted DateDiagnosed DateResolved DateChronic pain of both ankles /09/2021Thrombocytopenia- drug induced, phenobarbitol, olanzapine, cayvdko67/22/Knee pain01/03/ Immunizations ImmunizationAdministration DatesNext DueTD,PF 7+ (Teniva)04/28/2003 Family History Medical HistoryRelationCommentsCerebrovascular DiseaseFatherDepressionMaternal AuntDepressionMaternal GrandmotherCancerMotherBreast caDepressionOther 1Maternal side of familyHypertensionOther 2Paternal side of familyDepressionSister 3 Psychotic DisorderSon 2AustismDiabetesNo family hx ofSubstance AbuseNo family hx ofRelationStatusCommentsBrotherAliveMigrainesDaughterAliveHealthy but in counseling.FatherAlivePacemaker, mild CVAMaternal AuntMaternal Grandfather Maternal GrandmotherdepressionMotherAliveBreast cancerOther 1Other 2Paternal GrandfatherHTNPaternal GrandmotherHTNSister 1AliveDepressionSister 2AliveHealthy Sister 3Son 1AliveAutism, lives in [place] at a facility.Son 2 Social History Tobacco UseTypesPacks/DayYears UsedDateSmoking Tobacco: Every DayCigarettes Smokeless Tobacco: Never Tobacco Cessation:Ready to Q uit: Not Asked; Counseling Given: Not Answered Alcohol UseStandard Drinks/WeekCommentsYes0 (1 standard drink = 0.6 oz pure alcohol)occAdolescent EducationAnswerDate RecordedGetting School Help NeededNot on file3CommentsNoSex and Gender InformationValueDate Recorded Sex Assigned at MpsrdTnixiv94/31/2022 2:48 PM CSTLegal EksPlckpt75/04/2012 3:44 AM CSTGender EqwhcxgcUlxzso30/31/2022 2:48 PM CSTSexual OrientationStraight 10/22/2022 2:48 PM SOLAR INSTALLER PV Last Filed Vital Signs Vital SignReadingTime TakenCommentsBlood Zwsfbtbf454/67003/24/2023 9:30 AM CDT Czpqf765103/24/2023 9:30 AM PHCWyybtavmyna51.3 ??C (97.3 ??F)03/24/2023 8:30 AM CDTRespiratory Xtsp912803/24/2023 8:06 AM CDTOxygen Sodxrdvhwv87%03/24/2023 9:30 AM CDTInhaled Oxygen Concentration--Wuefef28.4 kg (206 lb)03/24/2023 6:29 AM CDT Qitsys617.2 cm (5' 7)03/24/2023 6:29 AM CDTBody Mass Index32.26003/24/2023 6:29 AM CDT Plan of Treatment Health MaintenanceDue DateLast DoneCommentsADVANCE CARE NCTLEKXA1966ANNUAL REVIEW OF HM OVDXTE30 1966CT FKXLNTVBEQNY09/24/9928LAT20 1966FLEX SIG 1966sDNA (Cologuard)1965 7231SXSHXDSDTJW73/24/1976COLORECTAL CANCER WAQHXHCLF29/24/1976HIV JHWTAJXTM45/24/1981HEPATITIS C WNTKBFWRW39/24/1984 HEPATITIS A VACCINE (1 of 2 - Risk 2-dose series)1985HEPATITIS B VACCINE (1 of 3 - 19+ 3-dose series)1985YEARLY PREVENTIVE VISIT04/28/2004 04/28/2003PAP04/28/LIPID04/29/MAMMO SCREENING , 12/19/2007, 12/12/2007, Additional history existsLUNG CANCER MEAQDRFZJ02/24/2016PNEUMOCOCCAL VACCINE 50+ YEARS (1 of 1 - PCV) 2016ZOSTER VACCINE (1 of 2)2016DIABETES FDSAPTNGE78/24/2017 05/15/2014, 05/14/2014, 05/13/2014, Additional history existsDTAP/TDAP/TD VACCINE (2 - Td or Tdap), 04/28/2003, 04/28/2003, Additional history existsPHQ-2 (once per calendar year)5COVID-19 VACCINE (3 - 2024- season)503/, 12/15/2020INFLUENZA VACCINE (#1)2025 07/25/2020, 07/03/2019, 07/03/2019, Additional history existsHPV VACCINE (No Doses Required)CompletedMENINGITIS VACCINEAged OutNo longer eligible based on patient's age to complete this topic Medical Devices ImplantedTypeAreaManufacturerDevice IdentifierShelf Expiration DateModel / Serial / LotSling, Incontinence, Gynecar Tvt Exact Tvtrl - [id number] Implanted:Qty: 1 on 03/24/2023 [facility]N/A: VaginaJ&J [facility]-[id number]/22/2023TVTRL / / [id number] Ureteral Dbl Pigtail Inlay [id number] Implanted:Qty: 1 on 11/10/2012 by [facility]: UreterCR [employer]-[id number] / / [id number] Procedures Procedure NamePriorityDate/TimeAssociated DiagnosisCommentsBASIC METABOLIC PANEL STAT05/15/2014 8:06 AM CDT ITP (idiopathic thrombocytopenic purpura) (H) HC MAMMOGRAM, DIAGNOSTIC SHPTTCAADZMcgayeg54/27/2008 2:07 PM SOLAR INSTALLER PV HCL LIPID WOQOVVumytus68/08/2003 4:22 AM CDT Gynecologic Examination Depressive Disorder Nec Anxiety State Nos ZZCL AFF THIN LAY PAP,DIAG W/HPV ONWXWTRuyazew51/07/2003 10:57 PM CDT Gynecologic Examination Depressive Disorder Nec Anxiety State Nos from Last 3 Months or Most Recently Relevant to Health Maintenance Results * Basic metabolic panel (05/15/2014 8:06 AM CDT)ComponentValueRef RangeTest MethodAnalysis TimePerformed AtPathologist VeelubyczNhguln496561 - 144 mmol/L [facility]Potassium3.73.4 - 5.3 mmol/L [facility]Chloride10794 - 109 mmol/L [facility]Carbon Ihhitcp3053 - 32 mmol/L [facility]ITALAnion Gap66 - 17 mmol/LUNJOHNS HOPKINS HOSPITALGlucose8860 - 99 mg/dLHOLY CROSS HOSPITALUrea Eatjhxbq30 - 24 mg/dLHOLY CROSS HOSPITALCreatinine0.800.52 - 1.04 mg/dLHOLY CROSS HOSPITALGFR Kgxzuyvg65>60 mL/min/1.2r8LKZFRYVRLQHOLY CROSS HOSPITALGFR Estimate If Black>90>60 mL/min/1.1s5ETIZUOUHGMHOLY CROSS HOSPITALCalcium8.58.5 - 10.4 mg/dLHOLY CROSS HOSPITALSpecimen (Source)Anatomical Location / LateralityCollection Method / VolumeCollection TimeReceived TimeBlood specimen (specimen)05/15/2014 8:06 AM CDT05/15/2014 8:07 AM CDT Narrative Authorizing ProviderResult TypeResult StatusCecilia Bindu Haley Letasanthosh PALAB - BLOOD ORDERABLESFinal ResultPerforming OrganizationAddressCity/State/ZIP CodePhone Number [facility] [address] [place] [address] * MAMMOGRAPHY; UNILATERAL (12/19/2007 2:07 PM SOLAR INSTALLER PV)Anatomical RegionLaterality ModalityOtherSpecimen (Source)Anatomical Location / LateralityCollection Method / VolumeCollection TimeReceived Time12/19/2007 2:07 PM SOLAR INSTALLER PV Impressions 12/28/2007 9:14 AM SOLAR INSTALLER PV Addendum Begins ADDENDUM: ?The pathology diagnosis for the right breast nodule [...] 6 month followup diagnostic mammogram are recommended. ?Dictated ?? on: ?; ?? {CR} ?12/21/2007 ?? 9:46:04AM ?; ?? {CR} ?Interpreted ?? by: ?; ?? {CR} ?RONI ?? VERNA ?; ?? {CR} ?Transcribed ?? by: ?; ?? {CR} ?PowerScribe ?; ?? {CR} ?? Addendum Ends ULTRASOUND CORE BIOPSY, BOTH BREASTS; CLIP PLACEMENT; POSTBIOPSY MAMMOGRAM ??- 12/19/2007 HISTORY: Indeterminate nodules in both breasts. [...] difficulty and there was no immediate complication. Narrative Authorizing ProviderResult TypeResult StatusApril FitzloffMAMMOGRAPHYEdited * A.M.A. LIPID PANEL (04/29/2003 4:22 AM CDT)ComponentValueRef RangeTest Method Analysis TimePerformed AtPathologist SignatureCommentsDNRQUEST JONES Aesxlkafxogvn069<150 MG/DLQUEST RJMKNZFConxpdwqamd096<200 MG/DLQUEST JONES Cholesterol Wflozyqfud80CHPQAZLSEGWHPVU JONESHDL Qmmovzgzmmw75>39 MG/DLQUEST JONESLDL Cholesterol Hdpxgduprr558<130 MG/DLQUEST JONESComment: LDL CHOLESTEROL (MG/DL) GOALS AND CUTPOINTS FOR THERAPEUTIC LIFESTYLE CHANGES (TLC) AND DRUG THERAPY IN DIFFERENT RISK CATEGORIES (AFTER EXCLUSION OR, IF APPROPRIATE, TREATMENT OF SECONDARY CAUSES OF LDL ELEVATION). FROM NCEP ATP-III REPORT, FEBRUARY 2001. RISK CATEGORY ?LDL GOAL ?LDL TO ? LDL TO CONSIDER ? INITIATE TLC ??DRUG THERAPY - CHD OR CHD >129 EQUIVALENTS: ?(100-129: 10 YR RISK >20% <100 >99 DRUG OPTIONAL) 2+ RISK FACTORS: 10 YR RISK 10-20% <130 >129 >129 - 2+ RISK FACTORS: 10 YR RISK <10% <130 >129 >159 - 0-1 RISK FACTORS: <160 >159 >189 ?(160-189: ?DRUG OPTIONAL) Cholesterol/HDL Ratio4.1<4.4QUEST JONESSpecimen (Source)Anatomical Location / LateralityCollection Method / VolumeCollection TimeReceived Time04/28/2003 Narrative Authorizing ProviderResult TypeResult StatusLaura Jamison Dyson MDLABORATORYFinal ResultPerforming OrganizationAddressCity/State/ZIP CodePhone Number [facility] * THIN LAY PAP,DIAG W/HPV REFLEX (04/28/2003 10:57 PM CDT)ComponentValueRef RangeTest MethodAnalysis TimePerformed AtPathologist SignatureUnlabelledDNR QUEST CHICAGOSourceDNRQUEST YBNRUWLPBR28/10/01QUEST CHICAGOClinical HistoryDNR QUEST CHICAGOTherapyDNRQUEST CHICAGOLast Pap DiagnosisWNLQUEST JONESPAP Date DNRQUEST CHICAGOPrev Bx DxDNRQUEST CHICAGOPrev Bx DateDNRQUEST CHICAGOAddl Hx InfoDNRQUEST JONESStatement of AdequacyQUEST CHICAGOComment: SATISFACTORY FOR EVALUATION ENDOCERVICAL/TRANSFORMATION ZONE COMPONENT PRESENT General CategorizationDNRQUEST CHICAGODescriptive DiagnosisQUEST CHICAGOComment: NEGATIVE FOR INTRAEPITHELIAL LESION OR MALIGNANCY ORGANISMS: FUNGAL ORGANISMS MORPHOLOGICALLY CONSISTENT WITH MAIKOL SPECIES BASED ON THIN PREP PAP TEST RESULT, HPV REFLEX TEST NOT PERFORMED. RecommendationsDNRQUEST JONES.[facility] CENTERComment: PAP SMEARS ARE SUBJECT TO BOTH FALSE NEGATIVE AND FALSE POSITIVE RESULTS EVIDENCED BY DATA PUBLISHED IN THE MEDICAL LITERATURE. ??YOUR PATIENT'S RESULT SHOULD BE INTERPRETED IN THIS CONTEXT, TOGETHER WITH THE PATIENT'S HISTORY AND CLINICAL FINDINGS. THIS TEST WAS PERFORMED AT [facility] [address] [facility], [address] [place], [place] ?? [address] PHONE NUMBERS FOR CYTOLOGY INQUIRIES, INCLUDING SLIDE REQUESTS: ? Specimen (Source)Anatomical Location / LateralityCollection Method / Volume Collection TimeReceived Time04/28/2003 Narrative Authorizing ProviderResult TypeResult StatusLaura Jamison Dyson MDLABORATORYFinal ResultPerforming OrganizationAddressCity/State/ZIP CodePhone Number [facility] from Last 3 Months or Most Recently Relevant to Health Maintenance Insurance * Guarantor: Nettie Mezacount TypeRelation to PatientDate of BirthPhone Billing AddressPersonal/LybmgeKmcm1965 [place] [address] * Guarantor: Nettie Meza MAccount TypeRelation to PatientDate of BirthPhone Billing AddressPersonal/XmradnMzgi1965 none (Work) [address] [place] [address] * Guarantor: Nettie Meza MAccount TypeRelation to PatientDate of BirthPhone Billing AddressThird GrkpgTpxz[address] [place] [address] * Guarantor: [id number] TypeRelation to PatientDate of BirthPhone Billing AddressWorker's ZwdxmlyidupeUlafsexs[address] [address] * Guarantor: Nettie Meza TypeRelation to PatientDate of BirthPhone Billing NqwybdaXnltfdqhanJcgj[address] [place] [address] * Guarantor: Nettie Mezagailjayne TypeRelation to PatientDate of BirthPhone Billing AddressThird JrnvcDliv1965 none (Work) [address] [place] [address] Advance Directives For more information, please contact: [phone] * Full Code (Latest Code Status on File) Date ActivatedDate InactivatedComments05/15/2014 9:41 AM * Full Code Date ActivatedDate InactivatedComments05/13/2014 10:14 PM05/15/2014 9:41 AM * Full Code Date ActivatedDate InactivatedComments04/30/2014 5:47 PM05/11/2014 4:26 PM * Full Code Date ActivatedDate InactivatedComments11/08/2012 7:18 PM11/10/2012 5:23 PM Care Teams Team MemberRelationshipSpecialtyStart DateEnd Date January PCP - GeneralPhysician Assistant04/30/14
--- OUTSIDE RECORDS SUMMARY | 2025-10-01 16:36 | XMS_ITS | Clinical Summary ---
Author Organization [facility] Address [address] [place] [address] Care Team Providers Care Blocklayer Name Role Phone Vanessa Barbour MD Primary Care Provider [phone] Allergies Active AllergyReactionsCriticalityNoted KdjpQkrmsqtzAkityloRhne76/13/2006 Diatrizoate BqrgxawgKqrp55/11/2006 Patient states had a rash when she had the contrast in her 20s has had the non ionic since and doesfine Medications MedicationSigDispense QuantityRefillsLast FilledStart DateEnd DateStatus CARISOPRODOL 350 MG TAB 350 mg oral every 6 hours as needed for spasm 40 ctive DULoxetine (CYMBALTA) 60 mg Delayed-release capsule Take 120 mg by mouth once daily.Active gabapentin (NEURONTIN) 600 mg tablet TAKE 1.5 TABLETS BY MOUTH 3 TIMES DAILY. INCREASE DOSE LRMATRLH363/16/2018 Active lamoTRIgine (LAMICTAL) 200 mg tablet TAKE 1.5 TABLET BY MOUTH EVERY JBA113Active metoprolol tartrate (LOPRESSOR) 25 mg tablet Take 25 mg by mouth 2 times daily.Active HYDROcodone-acetaminophen, 5-325 mg, (NORCO) per tablet Take 1 tablet by mouth every 4 hours if needed for pain. 10 tablet 12/17/2019 7:56 PM CST12/17/2019Active rizatriptan (MAXALT) 10 mg tablet TAKE 1 TAB BY MOUTH NEEDED AT ONSET OF HEADACHE. MAY REPEAT EVERY 2 HRS IF NEEDED. XNZ97GZ/11HXV0412/13/2019Active cyclobenzaprine (FLEXERIL) 10 mg tablet Take 10 mg by mouth 3 times daily if needed.08/13/2019Active dextroamphetamine-amphetamine (ADDERALL XR) 30 mg Extended-Release capsule 12/11/2019Active oxyCODONE (ROXICODONE) 5 mg immediate release tablet Indications:S/P laparoscopic cholecystectomyTake 1 tablet by mouth every 6 hours if needed for Pain 5 tablet 12/26/2019Active acetic acid 0.25% 0.25 % irrigation Moisten 1-2 gauze pads and wring excess. Apply moistened gauze to open wound then cover moist gauzewith dry gauze. Change twice a day. 500 mL 2:34 PM CST4Active semaglutide (Wegovy) 0.25 mg/0.5 mL subcutaneous pen 0.25 mg (0.5 mL) subcutaneously every week for 4 weeks; administer weeks 1 through 4 of therapy 2 mL 08/23/2024 11:13 AM CDT14Active semaglutide, weight loss, (Wegovy) 0.5 mg/0.5 mL subcutaneous pen Inject 0.5 mg (0.5 mL) subcutaneously every week for 4 weeks; administer weeks 5 through 8 of therapy 2 mL 09/20/2024 12:41 PM CST4Active semaglutide, weight loss, (Wegovy) 1 mg/0.5 mL subcutaneous pen Inject 1 mg subcutaneous once weekly. 2 mL 5Active Immunizations ImmunizationAdministration DatesNext DueTd (Age >=7 Years)04/28/2003 Social History Tobacco UseTypesPacks/DayYears UsedDateSmoking Tobacco: Every DayCigarettes Smokeless Tobacco: NeverCommentsUnknownSex and Gender InformationValue Date RecordedSex Assigned at BirthNot on fileLegal HctKzanjw20/14/2013 6:34 AM CSTGender IdentityNot on fileSexual OrientationNot on file Last Filed Vital Signs Vital SignReadingTime TakenCommentsBlood Ihkonbra340/8712/26/2019 8:31 AM ONCOLOGY TRANSPLANT NETWORK MANAGER Sfmqi272112/26/2019 8:31 AM HFNHypufpnqgop65.8 ??C (98.2 ??F)12/26/2019 8:31 AM CSTRespiratory Ekvo738802/23/2018 2:10 PM CDTOxygen Pumavyiwsm96%12/26/2019 8:31 AM CSTInhaled Oxygen Concentration--Dimftn552.5 kg (267 lb 12.8 oz)12/26/2019 8:31 AM JSNOvgngw774.3 cm (5' 9)02/23/2018 11:51 AM CDTBody Mass Index39.55 02/23/2018 11:51 AM CDT Plan of Treatment Health MaintenanceDue DateLast DoneCommentsDepression screening for age 12+ 1978HIV for age 15-Hepatitis C screening for age 18-79 1984Hepatitis B series for 19+ (1 of 3 - 19+ 3-dose series)1985Pap test for age 21-65Colonoscopy through age Lipids for age 45-Mammogram for age 45-Tetanus booster Pneumococcal series for age 50+ (1 of 1 - PCV)2016 Zoster (shingles) series for age 50+ (1 of 2)2016BMI (ht and wt on same day) for age 18+COVID-19 vaccine series ( - 2024- season) 2025Influenza Vaccine (#1)2025RSV vaccine for adults or (1 - 1-dose 75+ series)2041 Procedures Procedure NamePriorityDate/TimeAssociated DiagnosisCommentsGYNECOLOGICAL PANEL Timed10/08/2007 10:12 AM ONCOLOGY TRANSPLANT NETWORK MANAGER from Last 3 Months or Most Recently Relevant to Health Maintenance Results * GYNECOLOGICAL PANEL (10/08/2007 10:12 AM ONCOLOGY TRANSPLANT NETWORK MANAGER)ComponentValueRef RangeTest MethodAnalysis TimePerformed AtPathologist SignatureCYTOLOGY??CYTOPATHOLOGY REPORT ??[facility] ?? Status: Final Report ? [id number] ?? CLINICAL INFORMATION ?LMP ? : 10/03/07 ?Previous Pap Date ? : 2004 ?Previous PAP Dx ? : WNL ?Previous [place]/bx date : None ?Previous Colposcopy/Bx: None ?Hormone Usage ? : Not given ?Appearance of Cervix ??: Not given ?[place]/Bx done today ?: No ?HPV Request ? : Reflex HPV test if PAP Dx ASCUS ?? SPECIMEN SOURCE ?: Cervical/vaginal ThinPrep Vial, screening ?? SPECIMEN ADEQUACY ?: Satisfactory for evaluation Endocervical ?component present. ? INTERPRETATION/RESULT: ?Negative for intraepithelial lesion or malignancy. ? Cytology 1st Screener : ??tll ?? Signed by: ? tll ?? This specimen was screened by the FDA approved ThinPrep Imaging ?? System and manually reviewed. ?? NOTE: The Pap test is a screening technique, not a diagnostic ?? procedure. It is used primarily to screen for squamous cancers and ?? precursor lesions. Published studies have shown that it is subject to ?? both false negative and false positive results. The pap test should ?? not be used as the sole means to diagnose or exclude pre-malignant and ?? malignant lesions. ?? COLLECTED: 10/08/07 ?? ACCESSIONED: 10/10/07 ?? SIGNED: 10/19/[address] [facility]OSPITALpecimen (Source)Anatomical Location / LateralityCollection Method / VolumeCollection TimeReceived Time10/08/2007 10:12 AM CST10/10/2007 10:12 AM ONCOLOGY TRANSPLANT NETWORK MANAGER Narrative Authorizing ProviderResult TypeResult StatusApril Nigel Nobles PA-C PATHOLOGY/CYTOLOGYFinal ResultPerforming OrganizationAddressCity/State/ZIP Code Phone Number [facility] INTERNAL ZIP [phone] [address] from Last 3 Months or Most Recently Relevant to Health Maintenance Insurance * Guarantor: COLE KATZ TypeRelation to PatientDate of BirthPhone Billing AddressWorkers JvvzQizb1965 [address] [address] Advance Directives * Full Code (Latest Code Status on File) Date ActivatedDate InactivatedComments02/23/2018 1:15 PM02/23/2018 5:04 PM * Full Code Date ActivatedDate InactivatedComments02/02/2006 9:20 PM02/04/2006 3:07 PM * Full Code Date ActivatedDate InactivatedComments02/02/2006 7:01 PM02/02/2006 9:20 PM * Full Code Date ActivatedDate InactivatedComments02/02/2006 3:01 PM02/02/2006 7:01 PM Care Teams Team MemberRelationshipSpecialtyStart DateEnd Date Vanessa Barbour MD [address] [place] [address] [facility]
== END 2025-10-01 16:39 | disposition home or self-care (01) ==
PROVIDERS: Emergency Provider Family Medicine; PCP Family Medicine
DX: R10.32 Left lower quadrant pain (principal)
CPT/HCPCS: 36415; 74176; 80048; 80076; 81001; 83605; 85025; 86140; 87086; 94761; 96374; 96375; 99284; J1885; J2270; J2919; J7030

== ENCOUNTER 2025-10-21 08:21 | Outpatient (CLI) | payer BC, SELFPAY ==
--- NOTE | 2025-10-21 08:45 | CRLHL7_ITS ---
For Patients: As a result of the Cures Act, medical imaging exams and procedure reports are released immediately into your electronic medical record. You may view this report before your referring provider. If you have questions, please contact your health care provider. BILATERAL DIAGNOSTIC MAMMOGRAM WITH COMPUTER-AIDED DETECTION AND TOMOSYNTHESIS LEFT BREAST ULTRASOUND CLINICAL HISTORY: LEFT breast lump. COMPARISON: 01/27/2023, 01/15/2014, 06/04/2013. TECHNIQUE: Digital BILATERAL mammogram in four projections with computer-aided detection. Tomosynthesis was used in this interpretation. Real-time ultrasound imaging of LEFT breast with imaging documentation. BREAST COMPOSITION: There are scattered areas of fibroglandular density. FINDINGS: 3D CC/MLO BILATERAL mammogram images submitted. Postop changes BILATERAL reduction mammoplasty. Calcified fat necrosis noted bilaterally. No suspicious calcifications or adenopathy. Targeted LEFT breast ultrasound performed at 3 o`clock, 9 cm from the nipple. In this location there is a circumscribed heterogeneous area which measures 1.5 x 1.3 x 2.2 cm corresponding to a partially calcified and fat density structure consistent with benign scar tissue/fat necrosis. IMPRESSION: No evidence of malignancy. 2.2 cm fat necrosis LEFT breast 3 o`clock, 9 cm from the nipple. RECOMMENDATIONS: Routine screening mammography. A lay language report of this examination will be provided to the patient. BI-RADS Category 2: Benign Dictated by Flako Barlow MD @ 10/21/2025 9:22:11 AM /sp SP/Dictated by: Flako Barlow MD @ 10/21/2025 9:22:00 AM (Electronically Signed)
--- NOTE | 2025-10-21 09:15 | CRLHL7_ITS ---
For Patients: As a result of the Century Cures Act, medical imaging exams and procedure reports are released immediately into your electronic medical record. You may view this report before your referring provider. If you have questions, please contact your health care provider. PLEASE SEE BILATERAL BREAST DIAGNOSTIC MAMMOGRAM PERFORMED SAME DAY. CRL:sp SP/Dictated by: Flako Barlow MD @ 10/21/2025 9:56:00 AM (Electronically Signed)
== END 2025-10-21 08:22 | disposition home or self-care (01) ==
LOC: MAMMO 08:22
PROVIDERS: PCP Family Medicine; Visit Provider Family Medicine
DX: N63.20 Unspecified lump in the left breast, unspecified quadrant (principal)
CPT/HCPCS: 76642; 77066; G0279